=== PATIENT | female | born 1955 | race Caucasian/White ===

== ENCOUNTER → 2017-04-14 | Outpatient (CLI) | payer OTHER | LOC: FIMAGING 15:36 | PROVIDERS: ATTEND Family Medicine | DX: M79.605 Pain in left leg (principal); R22.42 Localized swelling, mass and lump, left lower limb ==

== ENCOUNTER → 2017-04-17 | Outpatient (CLI) | payer OTHER | LOC: FIMAGING 18:37 | PROVIDERS: ATTEND Family Medicine | DX: M79.662 Pain in left lower leg (principal) ==

== ENCOUNTER 2017-06-02 21:22 | Emergency (ER) | payer OTHER ==
[2017-06-02 21:32] VITALS: TEMP 97.3
[2017-06-02 22:25] LABS: % IMMATURE GRANULYOCYTES 0.3 % (0.0-1.1); ABSOLUTE IMMATURE GRANULOCYTES 0.03 10^3/uL (0.00-0.10); ADD DIFF? NO; ADD MORPH? NO; ADD SCAN? NO; ATYPICAL LYMPHOCYTE FLAG 0 (0-99); FRAGMENT RBC FLAG 0 (0-99); HEMATOCRIT 43.6 % (38.0-47.0); HEMOGLOBIN 13.9 g/dL (12.6-16.3); LEFT SHIFT FLG 0 (0-99); LIPEMIA HEMOLYSIS FLAG 80 (0-99); MEAN CELL HEMOGLOBIN 27.1 pg (27.9-34.1); MEAN CELL HEMOGLOBIN CONCENTR. 31.9 g/dL (32.4-36.7); MEAN PLATELET VOLUME 9.8 fL (8.7-11.7); PLATELET CLUMPS FLAG 0 (0-99); PLATELET COUNT 190 10^3/uL (150-400); RED BLOOD CELL COUNT 5.13 10^6/uL (4.18-5.33); RED CELL DISTRIBUTION WIDTH 15.3 % (11.5-15.2)
[2017-06-02 22:39] LABS: ANION GAP 15 mEq/L (8-16); CALCIUM 8.8 mg/dL (8.5-10.4); CARBON DIOXIDE 26 mEq/l (22-31); CHLORIDE 101 mEq/L (97-110); CREATININE 0.8 mg/dL (0.6-1.0); GLOMERULAR FILTRATION RATE > 60; GLUCOSE 113 mg/dL (70-100); POTASSIUM 3.7 mEq/L (3.5-5.2); SODIUM 142 mEq/L (134-144)
--- NOTE | 2017-06-02 22:44 | EDPHY ---
H & P Time Seen by Provider: 06/02/17 21:35 HPI/ROS: This patient presents with "a large red spot "on her abdominal wall. She noticed some itching this morning and over the course of the day developed increasing redness to the area and she notices that the area of redness is warm to touch. She is concerned about and potential infection and came in for evaluation. She has never had this occur to her before on the belly or elsewhere. She otherwise feels well and describes only minimal discomfort associated with the area of redness. She arrives here by private vehicle. ROS: No fevers or chills. No other constitutional symptoms Cardiovascular: No lightheadedness. GI: No nausea or vomiting no abdominal pain. No abdominal distension. Normal bowel movements. Integumentary: No rash elsewhere. She is unaware of any recent lacerations or abrasions to the area of redness. 7 point ROS is otherwise negative Past Medical/Surgical History: Insomnia, cardiomyopathy, asthma Smoking Status: Former smoker Physical Exam: Initial vitals notable for hypertension. No fever. General Appearance: Pleasant obese female Alert, no distress. Eyes: Pupils equal and round no pallor or injection. ENT, Mouth: Mucous membranes moist. Respiratory: There are no retractions, lungs are clear to auscultation. Cardiovascular: Regular rate and rhythm. Gastrointestinal: Normoactive, soft, nontender. No distention. No medical hernias appreciated. Neurological: GCS 15 Skin: There is a small superficial crack in the skin at the border of the umbilicus this partial-thickness, nonbleeding there is no fluctuance associated with this. There is surrounding erythema and warmth to touch inferior to the umbilicus in area approximately 2 hands in size. Musculoskeletal: Neck is supple nontender. Psychiatric: Mood and affect are normal DIFFERENTIAL DIAGNOSIS: After history and physical exam differential diagnosis was considered for abdominal wall cellulitis-strep versus staph, doubt MR . No clinical evidence of abscess Constitutional: Initial Vital Signs Temperature (C) 36.3 C 06/02/17 21:31 Heart Rate 99 06/02/17 21:31 Respiratory Rate 20 06/02/17 21:31 Blood Pressure 196/101 H 06/02/17 21:31 O2 Sat (%) 91 L 06/02/17 21:31 O2 Delivery Mode Room Air Allergies/Adverse Reactions: No Known Allergies Allergy (Verified 06/02/17 21:29) Home Medications: Medication Instructions Recorded Haloperidol 2 mg PO HS 01/03/15 Loratadine [Claritin 10 mg] 10 mg PO BID 01/03/15 lamOTRIGine [Lamotrigine] 200 mg PO HS 01/03/15 Diuretic 06/02/17 MDM/Departure - MDM Diagnostics: CBC and basic metabolic panel are normal. Wound cultures pending Medications Given: Discontinued Medications Ceftriaxone Sodium 1 gm/ (Sodium Chloride) 100 mls @ 200 mls/hr IV EDNOW ONE PRN Reason: Protocol Stop: 06/02/17 22:36 Last Admin: 06/02/17 22:27 Dose: 100 mls ED Course/Re-evaluation: I obtained a swab culture from a moist Q-tip applied to the area of cracked skin at the umbilicus. IV is placed and patient is treated with 1 g of Rocephin. I counseled her regarding cellulitis. Discussion: Abdominal wall cellulitis likely with a source from the area of cracked skin near the umbilicus. Patient has no clinical evidence of sepsis or systemic toxicity associated with this, nor did she have any evidence of surgical abdomen, incarcerated hernia, abscess or other concerning findings. However given the size and location cellulitis felt the patient warranted IV antibiotics. She will return tomorrow for recheck. - Depart Disposition: Home, Routine, Self-Care Clinical Impression: Abdominal wall cellulitis Condition: Good Instructions: Cellulitis (ED) Additional Instructions: Diagnosis: Abdominal wall cellulitis Plan: Apply warm packs a few times a day tomorrow. Tylenol and/or ibuprofen if needed for discomfort Return after 3:00 p.m. for recheck here at [facility] Emergency Department. Return sooner if he develops any significant worsening-onset of fever chills or significant spreading of the redness Referrals: Alonso Freedman MD [Primary Care Provider] - As per Instructions
[2017-06-02 23:27] VITALS: BP 166/89; PULSE 92; RESP 16; O2SAT 96
--- NOTE | 2017-06-03 22:35 | EDPHY ---
H & P Stated Complaint: red area on belly, started today, concerned re infection Time Seen by Provider: 06/02/17 21:35 HPI/ROS: This document was inadvertently opened initiated for discharge. There is a separate document for the same visit for this day. Please refer to that documentation for the patient's visit. Source: Patient Exam Limitations: No limitations - Personal History Current Tetanus/Diphtheria Vaccine: Yes Current Tetanus Diphtheria and Acellular Pertussis (TDAP): Yes Tetanus Vaccine Date: < 10 YEARS - Medical/Surgical History Hx Asthma: Yes Hx Chronic Respiratory Disease: Yes Hx Diabetes: No Hx Cardiac Disease: No Hx Renal Disease: No Hx Cirrhosis: No Hx Alcoholism: No Hx HIV/AIDS: No Hx Splenectomy or Spleen Trauma: No Other PMH: CARDIOMYOPATHY, ASTHMA, - Social History Smoking Status: Former smoker Constitutional: Initial Vital Signs Temperature (C) 36.3 C 06/02/17 21:31 Heart Rate 99 06/02/17 21:31 Respiratory Rate 20 06/02/17 21:31 Blood Pressure 196/101 H 06/02/17 21:31 O2 Sat (%) 91 L 06/02/17 21:31 O2 Delivery Mode Room Air Allergies/Adverse Reactions: No Known Allergies Allergy (Verified 06/04/17 13:55) Home Medications: Medication Instructions Recorded Haloperidol 2 mg PO HS 01/03/15 Fluticasone Nasal [Flonase Nasal 1 sprays NASAL DAILY PRN 06/05/17 [place]] Loratadine/Pseudoephedrine 1 tab PO DAILY PRN 06/05/17 [Loratadine-D 24Hr Tablet] Naproxen Sodium [Aleve 220 MG (*)] 220 mg PO DAILY PRN 06/05/17 Sulfamethox/Tmp 800/160 mg 1 tab PO BID 06/05/17 [Bactrim DS] acetaZOLAMIDE [Diamox Sequel 500mg] 500 mg PO Q2D 06/05/17 lamOTRIGine [Lamotrigine] 200 mg PO HS 06/05/17 Hydrocodone/APAP 5/325 [[place] 1 - 2 tab PO Q4 PRN #20 tab 06/06/17 5/325 (*)] Medical Decision Making - Data Points Laboratory Results: Laboratory Results 06/02/17 22:20 06/02/17 22:20 Medications Given: Discontinued Medications Ceftriaxone Sodium 1 gm/ (Sodium Chloride) 100 mls @ 200 mls/hr IV EDNOW ONE PRN Reason: Protocol Stop: 06/02/17 22:36 Last Admin: 06/02/17 22:27 Dose: 100 mls Departure - Departure Disposition: Home, Routine, Self-Care Clinical Impression: Abdominal wall cellulitis Condition: Good Instructions: Cellulitis (ED) Additional Instructions: Diagnosis: Abdominal wall cellulitis Plan: Apply warm packs a few times a day tomorrow. Tylenol and/or ibuprofen if needed for discomfort Return after 3:00 p.m. for recheck here at [facility] Emergency Department. Return sooner if he develops any significant worsening-onset of fever chills or significant spreading of the redness Referrals: Alonso Freedman MD [Primary Care Provider] - As per Instructions
== END 2017-06-02 23:25 | disposition home or self-care (01) ==
LOC: CED 21:22
DX: L03.311 Cellulitis of abdominal wall (principal); J45.909 Unspecified asthma, uncomplicated; Z87.891 Personal history of nicotine dependence
CPT/HCPCS: 80048-PO; 85025-PO; 96365; J0696

== ENCOUNTER 2017-06-03 16:15 | Emergency (ER) | payer OTHER ==
[2017-06-03 16:28] VITALS: RESP 16; TEMP 98.2; O2SAT 91
[2017-06-03 17:58] LABS: % IMMATURE GRANULYOCYTES 0.3 % (0.0-1.1); ABSOLUTE IMMATURE GRANULOCYTES 0.02 10^3/uL (0.00-0.10); ADD DIFF? NO; ADD MORPH? NO; ADD SCAN? NO; ATYPICAL LYMPHOCYTE FLAG 0 (0-99); FRAGMENT RBC FLAG 0 (0-99); HEMATOCRIT 45.1 % (38.0-47.0); HEMOGLOBIN 14.5 g/dL (12.6-16.3); LEFT SHIFT FLG 0 (0-99); LIPEMIA HEMOLYSIS FLAG 80 (0-99); MEAN CELL HEMOGLOBIN 27.3 pg (27.9-34.1); MEAN CELL HEMOGLOBIN CONCENTR. 32.2 g/dL (32.4-36.7); MEAN CELL VOLUME 84.9 fL (81.5-99.8); MEAN PLATELET VOLUME 9.8 fL (8.7-11.7); PLATELET CLUMPS FLAG 20 (0-99); PLATELET COUNT 190 10^3/uL (150-400); RED BLOOD CELL COUNT 5.31 10^6/uL (4.18-5.33); RED CELL DISTRIBUTION WIDTH 15.5 % (11.5-15.2)
[2017-06-03 18:09] LABS: ANION GAP 15 mEq/L (8-16); CALCIUM 8.8 mg/dL (8.5-10.4); CARBON DIOXIDE 26 mEq/l (22-31); CHLORIDE 105 mEq/L (97-110); CREATININE 0.7 mg/dL (0.6-1.0); GLOMERULAR FILTRATION RATE > 60; GLUCOSE 87 mg/dL (70-100); POTASSIUM 4.1 mEq/L (3.5-5.2); SODIUM 146 mEq/L (134-144)
--- NOTE | 2017-06-03 18:11 | EDPHY ---
H & P Stated Complaint: pt.states eval yesterday,cellulitis abd and treated w/ iv antibiotics Time Seen by Provider: 06/03/17 16:41 HPI/ROS: This patient returns 24 hr after I saw her yesterday for abdominal wall cellulitis reporting that she has more tenderness today at the umbilicus with slight deepening of the color of erythema but no significant spread to the area of erythema. She denies any other new symptoms. She came in by private vehicle for further evaluation according to instructions. ROS: No fevers or chills overnight. HEENT: No complaints line pulmonary: No complaints Cardiovascular: No lightheadedness or heart palpitations GI: No nausea vomiting. Mild discomfort it periumbilical in umbilical region with tenderness the umbilicus that is increased since yesterday. Normal bowel movements. : No complaints Integumentary: No other skin rashes 10 point ROS is otherwise negative. Source: Patient Exam Limitations: No limitations - Personal History Tetanus Vaccine Date: < 10 YEARS - Medical/Surgical History Hx Asthma: Yes Hx Chronic Respiratory Disease: Yes Hx Diabetes: No Hx Cardiac Disease: No Hx Renal Disease: No Hx Cirrhosis: No Hx Alcoholism: No Hx HIV/AIDS: No Hx Splenectomy or Spleen Trauma: No Other PMH: CARDIOMYOPATHY, ASTHMA,. Surg-none - Social History Smoking Status: Former smoker Alcohol Use: Rarely Drug Use: None - Physical Exam Exam: General Appearance: Pleasant obese 62-year-old female Alert, no distress. Eyes: Pupils equal and round no pallor or injection. ENT, Mouth: Mucous membranes moist. Respiratory: There are no retractions, lungs are clear to auscultation. Cardiovascular: Regular rate and rhythm. Gastrointestinal: Normoactive, soft, patient has a prominent umbilicus versus reducible umbilical hernia with associated erythema tenderness and warmth to touch. There is surrounding erythema approximately size yesterday's-minimally extends beyond surgical marker from yesterday's area of erythema in some places and does not extend beyond the marked region and other places. There is slight increase in the degree of erythema today. She has continued warmth to the area. Neurological: GCS 15 Skin: Warm and dry, no rashes. Musculoskeletal: Neck is supple nontender. Extremities are symmetrical, full range of motion. Psychiatric: Mood and affect normal DIFFERENTIAL DIAGNOSIS: After history and physical exam differential diagnosis was considered for abdominal wall cellulitis, umbilical hernia, rule out incarcerated hernia or abdominal wall abscess Constitutional: Initial Vital Signs Temperature (C) 36.8 C 06/03/17 16:24 Heart Rate 93 06/03/17 16:24 Respiratory Rate 16 06/03/17 16:24 Blood Pressure 169/115 H 06/03/17 16:24 O2 Sat (%) 91 L 06/03/17 16:24 O2 Delivery Mode Room Air Allergies/Adverse Reactions: No Known Allergies Allergy (Verified 06/03/17 16:23) Home Medications: Medication Instructions Recorded Haloperidol 2 mg PO HS 01/03/15 Loratadine [Claritin 10 mg] 10 mg PO BID 01/03/15 lamOTRIGine [Lamotrigine] 200 mg PO HS 01/03/15 Diuretic 06/02/17 Sulfamethox/Tmp 800/160 mg 1 tab PO BID #20 tab 06/03/17 [Bactrim Ds] Medical Decision Making - Diagnostics Imaging Results: Imaging Impressions Abdomen CT 06/03/17 17:10 Impression: 1. Umbilical hernia containing fat. There is associated inflammation adjacent to the hernia involving the periumbilical region. 2. See above report for additional findings. Results called and discussed with Abel Hawk M.D. on June 03, 2017 at 1930 hours. Imaging: Discussed imaging studies w/ processes chemical design engineer Radiologist ED Course/Re-evaluation: IV ceftriaxone 1 g I counseled patient regarding the need to pursue some imaging for further evaluation of the umbilicus/umbilical hernia Studies: Normal CBC today with white count diminished from above 9 yesterday to 6.9 today. Electrolytes normal I reviewed the patient's abdominal/pelvic CT and also spoke with Dr. Alegria- radiologist regarding results-large umbilical hernia with fat in the hernia but no bowel in the hernia no evidence of incarceration or obstruction. I spoke with Dr. Gambino-general surgeon on-call regarding the patient's umbilical hernia findings. He reviewed the CT as well and we decided on a course of treating the patient's abdominal wall cellulitis with antibiotics until infection clears and then proceeding with elective umbilical hernia repair. Currently, no evidence of incarcerated hernia, sepsis. The patient's degree of pain increased slightly to still mild intensity today which is what prompted my pursuing of imaging to further evaluate her umbilical hernia. We ruled out incarceration, bowel obstruction or abdominal wall abscess. The plan is to have 1 more day of IV ceftriaxone provided she is still stable, she will be recheck tomorrow and if improving could be switched to a regimen of oral Keflex or Augmentin along with sulfa-Bactrim antibiotic that I added on today. Wound cultures pending from the crack in the skin near the umbilicus from yesterday - results may be back tomorrow. This could further guide antibiotic therapy. The patient does not have immunocompromise. I did encourage her to use a heating pad her abdomen 45 min a day 4 times a day as per Dr. Gambino suggestion to encourage perfusion to the affected area of her belly. Patient was instructed to call Dr. Jaz Holloway-the office the Dr. Gambino is affiliated with to arrange follow-up appointment for 10-12 days or so as she is finishing the antibiotic course for recheck and for elective surgical planning for her significant umbilical hernia - Data Points Laboratory Results: Laboratory Results 06/03/17 17:45 06/03/17 17:45 06/03/17 06/03/17 17:45 17:45 WBC 6.94 10^3/uL 10^3/uL (3.80-9.50) RBC 5.31 10^6/uL 10^6/uL (4.18-5.33) Hgb 14.5 g/dL g/dL (12.6-16.3) Hct 45.1 % % (38.0-47.0) MCV 84.9 fL fL (81.5-99.8) MCH 27.3 pg L pg (27.9-34.1) MCHC 32.2 g/dL L g/dL (32.4-36.7) RDW 15.5 % H % (11.5-15.2) Plt Count 190 10^3/uL 10^3/uL (150-400) MPV 9.8 fL fL (8.7-11.7) Neut % (Auto) 71.7 % % (39.3-74.2) Lymph % (Auto) 18.9 % % (15.0-45.0) [place] % (Auto) 6.8 % % (4.5-13.0) Eos % (Auto) 1.9 % % (0.6-7.6) Baso % (Auto) 0.4 % % (0.3-1.7) Nucleat RBC Rel Count 0.0 % % (0.0-0.2) Absolute Neuts (auto) 4.98 10^3/uL 10^3/uL (1.70-6.50) Absolute Lymphs (auto) 1.31 10^3/uL 10^3/uL (1.00-3.00) Absolute Monos (auto) 0.47 10^3/uL 10^3/uL (0.30-0.80) Absolute Eos (auto) 0.13 10^3/uL 10^3/uL (0.03-0.40) Absolute Basos (auto) 0.03 10^3/uL 10^3/uL (0.02-0.10) Absolute Nucleated RBC 0.00 10^3/uL 10^3/uL (0-0.01) Immature Gran % 0.3 % % (0.0-1.1) Immature Gran # 0.02 10^3/uL 10^3/uL (0.00-0.10) Sodium 146 mEq/L H mEq/L (134-144) Potassium 4.1 mEq/L mEq/L (3.5-5.2) Chloride 105 mEq/L mEq/L (97-110) Carbon Dioxide 26 mEq/l mEq/l (22-31) Anion Gap 15 mEq/L mEq/L (8-16) BUN 15 mg/dL mg/dL (7-23) Creatinine 0.7 mg/dL mg/dL (0.6-1.0) Estimated GFR > 60 Glucose 87 mg/dL mg/dL (70-100) Calcium 8.8 mg/dL mg/dL (8.5-10.4) Medications Given: Discontinued Medications Ceftriaxone Sodium 1 gm/ (Sodium Chloride) 100 mls @ 200 mls/hr IV EDNOW ONE PRN Reason: Protocol Stop: 06/03/17 17:22 Last Admin: 06/03/17 17:50 Dose: 10 mls Trimethoprim/Sulfamethoxazole (Bactrim Ds) 1 ea PO EDNOW ONE PRN Reason: Protocol Stop: 06/03/17 20:00 Last Admin: 06/03/17 20:13 Dose: 1 ea Departure - Departure Disposition: Home, Routine, Self-Care Clinical Impression: Abdominal wall cellulitis Umbilical hernia Qualifiers: Obstruction and gangrene presence: without obstruction or gangrene Qualified Code(s): K42.9 - Umbilical hernia without obstruction or gangrene Condition: Good Instructions: Cellulitis (ED), Umbilical Hernia (ED) Additional Instructions: Diagnoses: 1. Abdominal wall cellulitis 2. Umbilical hernia Plan: Apply heating pad 45 min at a time 4 times a day until the cellulitis resolved Bactrim antibiotic Return tomorrow evening for another dose of IV antibiotics. Tylenol or ibuprofen if needed for pain Return sooner if he develops any worsening of symptoms despite treatment plan Call Dr. Holloway office to arrange a follow-up outpatient visit in 10-12 days after completing antibiotics Referrals: Alonso Freedman MD [Primary Care Provider] - As per Instructions Cullen Holloway MD [Medical Doctor] - As per Instructions Prescriptions: Sulfamethox/Tmp 800/160 mg [Bactrim Ds] 1 tab PO BID #20 tab
[2017-06-03] MEDS ORDERED: IOPAMIDOL (ISOVUE-300) 100 ML BTL ONE (18:14)
[2017-06-03] MEDS ORDERED: SULFAMETHOX/TMP 800/160 MG 1 TAB PO ONE (19:59)
[2017-06-03 20:13] VITALS: BP 170/106; PULSE 86
== END 2017-06-03 20:09 | disposition home or self-care (01) ==
LOC: CED 16:15
DX: K42.9 Umbilical hernia without obstruction or gangrene (principal); L03.311 Cellulitis of abdominal wall; J45.909 Unspecified asthma, uncomplicated; Z87.891 Personal history of nicotine dependence
CPT/HCPCS: 74177-PO; 80048-PO; 85025-PO; 96374; J0696; Q9967

== ENCOUNTER 2017-06-04 13:46 | Emergency (ER) | payer OTHER ==
[2017-06-04 13:57] VITALS: BP 175/95; PULSE 91; RESP 18; TEMP 97.5; O2SAT 91
--- NOTE | 2017-06-04 14:09 | EDPHY ---
H & P Stated Complaint: repeat abx for abd skin infection Time Seen by Provider: 06/04/17 14:00 - Personal History Tetanus Vaccine Date: < 10 YEARS - Medical/Surgical History Hx Asthma: Yes Hx Chronic Respiratory Disease: Yes Hx Diabetes: No Hx Cardiac Disease: No Hx Renal Disease: No Hx Cirrhosis: No Hx Alcoholism: No Hx HIV/AIDS: No Hx Splenectomy or Spleen Trauma: No Other PMH: CARDIOMYOPATHY, ASTHMA,. Surg-none - Social History Smoking Status: Former smoker Constitutional: Initial Vital Signs Temperature (C) 36.4 C 06/04/17 13:55 Heart Rate 91 06/04/17 13:55 Respiratory Rate 18 06/04/17 13:55 Blood Pressure 175/95 H 06/04/17 13:55 O2 Sat (%) 91 L 06/04/17 13:55 O2 Delivery Mode Room Air Allergies/Adverse Reactions: No Known Allergies Allergy (Verified 06/04/17 13:55) Home Medications: Medication Instructions Recorded Haloperidol 2 mg PO HS 01/03/15 Loratadine [Claritin 10 mg] 10 mg PO BID 01/03/15 lamOTRIGine [Lamotrigine] 200 mg PO HS 01/03/15 Diuretic 06/02/17 Sulfamethox/Tmp 800/160 mg 1 tab PO BID #20 tab 06/03/17 [Bactrim Ds] Cephalexin [Keflex (RX)] 500 mg PO TID #30 cap 06/04/17 Medical Decision Making ED Course/Re-evaluation: CHIEF COMPLAINT: Abdominal cellulitis HISTORY OF PRESENT ILLNESS: 62-year-old female whose had recurrent visits for abdominal cellulitis. She has received 3 doses of IV ceftriaxone. She was started on Bactrim yesterday also. Patient states that the abdomen feels much better today and is less bright red. She also states that it is less painful. She also denies any fevers or chills nausea vomiting or any systemic illness. REVIEW OF SYSTEMS: A 10 point review of systems was performed and is negative with the exception of the elements mentioned in the history of present illness. PHYSICAL EXAM: HR, BP, O2 Sat, RR. Temp noted General Appearance: Alert, well hydrated, appropriate, and non-toxic appearing. Head: Atraumatic without scalp tenderness or obvious injury Eyes: Pupils equal, round, reactive to light and accommodation, EOMI, no trauma , no injection. Ears: Clear bilaterally, no perforation, normal landmarks Nose: Atraumatic, no rhinorrhea, clear. Throat: There is no erythema or exudates, no lesions, normal tonsils, mucus membranes moist. Neck: Supple, 2+ carotid upstroke, nontender, no lymphadenopathy. Respiratory: No retractions, no distress, no wheezes, and no accessory muscle use. Lungs are clear to auscultation bilaterally. Cardiovascular: Regular rate and rhythm, no murmurs, rubs, or gallops. Bilateral carotid, radial, dorsalis pedis, and posterior tibial pulses intact. Good capillary refill all extremities. Gastrointestinal: Reducible umbilical hernia. Abdomen is soft, nontender, non- distended, no masses, no rebound, no guarding, no peritoneal signs. Musculoskeletal: Normal active ROM of all extremities, atraumatic. Neurological: Alert, appropriate, and interactive. The patient has normal DTRs and non-focal cranial nerves, motor, sensory, and cerebellar exam. Skin: An erythematous patch just below the umbilicus outlined by a marker. The erythema is much more dark red according to the patient and does not look very acutely reactive to me. Also there is no encroachment upon the surgical marker lines. Generally this is looking better. No rashes, good turgor, no nodules on palpation. Past medical history: Noncontributory Past surgical history: Noncontributory Family history: Noncontributory Social history: Employed at [employer], does not abuse tobacco drugs or alcohol DIAGNOSTICS/PROCEDURES/CRITICAL CARE TIME: I reviewed the CT scan done on the . DIFFERENTIAL DIAGNOSIS: Includes but is not limited to: Bacterial cellulitis , contact dermatitis, methicillin-resistant Staph aureus, methicillin sensitive Staph aureus, strep. MEDICAL DECISION MAKING: This patient's rash is much better today according to the patient and according to my evaluation in light of my reviewing Abel Hawk is prior notes. The 1 issue is that she started to developed a small amount of diarrhea. She believes she started to get better when Dr. Hawk started her on Bactrim. I have asked her to continue the Bactrim and I have added Keflex. She will follow up with her primary care doctor for re- evaluation. She will also follow-up with Dr. Delvin Holloway for elective surgery of the umbilical hernia although I do not believe it is incarcerated. Additionally, if the diarrhea persists she will return here medially or see her primary doctor. I have also asked her to begin probiotics. Departure - Departure Disposition: Home, Routine, Self-Care Clinical Impression: Cellulitis of abdominal wall Condition: Good Instructions: Cellulitis (ED) Additional Instructions: Use probiotics 4 times daily over the next several days. Finish both the Keflex and the Bactrim that Dr. Hawk prescribed. Follow up with Dr. DELVIN Holloway. If the diarrhea worsens seizure primary care doctor immediately. Referrals: Alonso Freedman MD [Primary Care Provider] - As per Instructions Prescriptions: Cephalexin [Keflex (RX)] 500 mg PO TID #30 cap
== END 2017-06-04 14:21 | disposition home or self-care (01) ==
LOC: CED 13:46
DX: L03.311 Cellulitis of abdominal wall (principal); J45.909 Unspecified asthma, uncomplicated; Z87.891 Personal history of nicotine dependence

== ENCOUNTER 2017-06-05 17:22 | Observation (INO) | payer OTHER ==
--- NOTE | 2017-06-05 17:24 | EDPHY ---
H & P Time Seen by Provider: 06/05/17 17:23 - Personal History Tetanus Vaccine Date: < 10 YEARS - Medical/Surgical History Hx Asthma: Yes Hx Chronic Respiratory Disease: Yes Hx Diabetes: No Hx Cardiac Disease: No Hx Renal Disease: No Hx Cirrhosis: No Hx Alcoholism: No Hx HIV/AIDS: No Hx Splenectomy or Spleen Trauma: No Other PMH: CARDIOMYOPATHY, ASTHMA,. Surg-none - Social History Smoking Status: Former smoker Constitutional: Initial Vital Signs Temperature (C) 36.7 C 06/05/17 17:31 Heart Rate 96 06/05/17 17:31 Respiratory Rate 16 06/05/17 17:31 Blood Pressure 231/99 H 06/05/17 17:31 O2 Sat (%) 94 06/05/17 17:31 Allergies/Adverse Reactions: No Known Allergies Allergy (Verified 06/04/17 13:55) Home Medications: Medication Instructions Recorded Haloperidol 2 mg PO HS 01/03/15 Cephalexin [Keflex (RX)] 500 mg PO TID #30 cap 06/04/17 ACETAZOLAMIDE 06/05/17 Fluticasone Nasal [Flonase Nasal 1 sprays NASAL DAILY PRN 06/05/17 [place] (RX)] Loratadine/Pseudoephedrine 1 tab PO DAILY PRN 06/05/17 [Loratadine-D Tablet] Naproxen Sodium [Aleve 220 MG (*)] 220 mg PO DAILY PRN 06/05/17 Sulfamethox/Tmp 800/160 mg 1 tab PO BID 06/05/17 [Bactrim Ds] lamOTRIGine [Lamotrigine] 200 mg PO HS 06/05/17 Medical Decision Making ED Course/Re-evaluation: CHIEF COMPLAINT: Abdominal cellulitis HISTORY OF PRESENT ILLNESS: 62-year-old female whose had recurrent visits for abdominal cellulitis. She has received 3 doses of IV ceftriaxone. She was started on Bactrim also. I evaluated her yesterday at [facility] for a scheduled recheck of her abdominal rash. She reported improvement in the associated pain and redness overlying an umbilical hernia. I advised that she continue the Bactrim and start Keflex, which she has done. Today, she has developed worsening pain around her umbilical hernia and thinks her rash is spreading. She denies any fevers or chills nausea vomiting or any systemic illness. REVIEW OF SYSTEMS: A 10 point review of systems was performed and is negative with the exception of the elements mentioned in the history of present illness. PHYSICAL EXAM: HR, BP, O2 Sat, RR. Temp noted General Appearance: Alert, well hydrated, appropriate, and non-toxic appearing. Head: Atraumatic without scalp tenderness or obvious injury Eyes: Pupils equal, round, reactive to light and accommodation, EOMI, no trauma , no injection. Nose: Atraumatic, no rhinorrhea, clear. Throat: Mucus membranes moist. Neck: Supple Respiratory: No retractions, no distress, no wheezes, and no accessory muscle use. Lungs are clear to auscultation bilaterally. Cardiovascular: Regular rate and rhythm, no murmurs, rubs, or gallops. Good capillary refill all extremities. Gastrointestinal: Reducible umbilical hernia. Abdomen is soft, nontender, non- distended, no masses, no rebound, no guarding, no peritoneal signs. Musculoskeletal: Normal active ROM of all extremities, atraumatic. Neurological: Alert, appropriate, and interactive. The patient has non-focal cranial nerves, motor, sensory, and cerebellar exam. Skin: An erythematous patch just below the umbilicus has encroached and expanded past the marker outline. The area is darker red than yesterday and more tender to the touch. Good turgor, no nodules on palpation. Past medical history: Cardiomyopathy, asthma Past surgical history: Noncontributory Family history: Noncontributory Social history: Employed at [employer], does not abuse tobacco drugs or alcohol DIAGNOSTICS/PROCEDURES/CRITICAL CARE TIME: I reviewed the CT scan done on the . DIFFERENTIAL DIAGNOSIS: Includes but is not limited to: Bacterial cellulitis , incarcerated omental hernia, contact dermatitis, methicillin-resistant Staph aureus, methicillin sensitive Staph aureus, strep. MEDICAL DECISION MAKING: This patient's rash is worse today according to the patient and according to my evaluation. She continued the Bactrim and Keflex I prescribed yesterday and has not seen improvement. In discussion with Dr. Fazal Holloway, he believes her cellulitis will not improve until her omental umbilical hernia has been treated surgically. He has offered to admit her tonight for this, which the patient agrees to. IV established. Labs drawn. 1gm IV Vancomycin administered for cellulitis. Departure - Departure Disposition: [facility] Clinical Impression: Incarcerated hernia, omental umbilical hernia, Abdominal wall cellulitis Condition: Fair
[2017-06-05 17:48] LABS: % IMMATURE GRANULYOCYTES 0.4 % (0.0-1.1); ABSOLUTE IMMATURE GRANULOCYTES 0.04 10^3/uL (0.00-0.10); ADD DIFF? NO; ADD MORPH? NO; ADD SCAN? NO; ATYPICAL LYMPHOCYTE FLAG 0 (0-99); FRAGMENT RBC FLAG 0 (0-99); HEMATOCRIT 46.5 % (38.0-47.0); HEMOGLOBIN 15.4 g/dL (12.6-16.3); LEFT SHIFT FLG 0 (0-99); LIPEMIA HEMOLYSIS FLAG 80 (0-99); MEAN CELL HEMOGLOBIN 27.9 pg (27.9-34.1); MEAN CELL HEMOGLOBIN CONCENTR. 33.1 g/dL (32.4-36.7); MEAN CELL VOLUME 84.2 fL (81.5-99.8); MEAN PLATELET VOLUME 9.6 fL (8.7-11.7); PLATELET CLUMPS FLAG 10 (0-99); PLATELET COUNT 219 10^3/uL (150-400); RED BLOOD CELL COUNT 5.52 10^6/uL (4.18-5.33); RED CELL DISTRIBUTION WIDTH 15.3 % (11.5-15.2)
[2017-06-05 18:01] LABS: PROTIME(PATIENT) 13.4 SEC (12.0-15.0)
[2017-06-05 18:05] LABS: ALANINE AMINOTRANSFERASE 46 IU/L (9-52); ALBUMIN 4.2 g/dL (3.5-5.0); ALKALINE PHOSPHATASE 154 IU/L (38-126); ANION GAP 14 mEq/L (8-16); ASPARTATE AMINOTRANSFERASE 27 IU/L (14-46); BILIRUBIN,TOTAL 0.4 mg/dL (0.1-1.4); BILIRUBIN-CONJUGATED 0.3 mg/dL (0.0-0.5); BILIRUBIN-UNCONJUGATED 0.1 mg/dL (0.0-1.1); CALCIUM 9.4 mg/dL (8.5-10.4); CARBON DIOXIDE 22 mEq/l (22-31); CHLORIDE 108 mEq/L (97-110); GLOMERULAR FILTRATION RATE 56; GLUCOSE 92 mg/dL (70-100); SODIUM 144 mEq/L (134-144); TOTAL PROTEIN 7.1 g/dL (6.3-8.2)
[2017-06-05] MEDS ORDERED: VANCOMYCIN HCL/NORMAL SALINE 250 ML IV ONE (18:14)
[2017-06-05] MEDS ORDERED: ONDANSETRON 4 MG/2 ML VIAL IVP PRN ×2 (18:58→23:08)
[2017-06-05] MEDS ORDERED: HYDROmorphONE/DILAUDID 1 MG/ML INJ IVP PRN (18:58)
[2017-06-05] MEDS ORDERED: OXYCODONE/APAP 5/325 TAB PO PRN (18:58)
[2017-06-05] MEDS ORDERED: NS W/ 20 KCl/L 1,000 ML IV SCH (19:00)
--- NOTE | 2017-06-05 19:38 | GHP ---
[f rep st] HISTORY AND PHYSICAL DATE OF ADMISSION: 06/05/2017 CHIEF COMPLAINT: Incarcerated umbilical hernia. HISTORY OF PRESENT ILLNESS: The patient is a 62-year-old female who denies a surgical history, who w as seen in urgent care for abdominal rash. This was thought to be erythema associated with an incarc erated umbilical hernia. She was put on antibiotics and thought initially the redness was improving. However, she since has developed worsening pain and thinks the rash is spreading in a gravity depen dent manner. She denies nausea, vomiting, diarrhea, constipation, fevers, or chills. PAST MEDICAL HISTORY: The patient reports having "small lungs" and says she was told she is a "lazy breather." She denies any major medical issues; however, from chart review, she has been diagnosed w ith cardiomyopathy. PAST SURGICAL HISTORY: Denies. MEDICATIONS: Include Flonase nasal spray, loratadine D, Aleve, Bactrim, lamotrigine, acetazolamide, haloperidol. ALLERGIES: No known drug allergies. SOCIAL HISTORY: Patient is a nonsmoker. She is employed at [employer] in [place]. FAMILY HISTORY: Noncontributory. REVIEW OF SYSTEMS: Ten-point review of systems negative, aside from that in the HPI. PHYSICAL EXAMINATION: GENERAL: Reveals a well-developed, well-nourished 62-year-old female with an increased BMI, in no acute distress. Nontoxic appearing. HEENT: Normocephalic, atraumatic. CHEST: Clear to auscultation bilaterally. CARDIAC: Regular rate and rhythm. ABDOMEN: Soft, with a tend er umbilical hernia, with irregular erythema below this, now extending beyond marked margins. IMPRESSIONS: This is a 62-year-old female with an incarcerated umbilical hernia and abdominal wall c ellulitis. PLAN: Plan is to bring the patient to the operating room for urgent umbilical hernia repair. I do n ot think she has bowel associated with this. She did have a CT scan a few days ago, which was review ed. She has also been given vancomycin in the ER. There is a consent in her chart, and she should r emain n.p.o. until surgery tonight. She will also be seeing Dr. Holloway. /[id number]/MODL
[2017-06-05] MEDS ORDERED: BUPIVACAINE 0.5% 30 ML SDV ONE (20:20)
[2017-06-05] MEDS ORDERED: MIDAZOLAM 2 MG/2 ML VIAL IVP ONE (21:02)
[2017-06-05] MEDS ORDERED: MIDAZOLAM 2 MG/2 ML VIAL ONE (21:04)
--- NOTE | 2017-06-05 21:06 | PDANEPAE ---
ANE History of Present Illness Incarcerated umbilical hernia ANE Past Medical History - Cardiovascular History Hx Hypertension: No Hx Arrhythmias: No Hx Chest Pain: No Hx Coronary Artery / Peripheral Vascular Disease: No Hx CHF / Valvular Disease: No Hx Palpitations: No - Pulmonary History Hx Oxygen in Use at Home: No Hx Sleep Apnea: No Sleep Apnea Screening Result - Last Documented: Positive - Endocrine History Hx Diabetes: No Hypothyroid: No Hyperthyroid: No Obesity: severe - Chronic Pain History Chronic Pain: No ANE Review of Systems Review of Systems: - Exercise capacity METS (RN): 4 METS ANE Patient History - Allergies Allergies/Adverse Reactions: No Known Allergies Allergy (Verified 06/04/17 13:55) - Home Medications Home Medications: Haloperidol 2 mg PO HS 01/03/15 [Last Taken 06/04/17 21:00] Fluticasone Nasal [Flonase Nasal [place] (RX)] 1 sprays NASAL DAILY PRN 06/05/17 [ Last Taken 06/04/17 08:00] Loratadine/Pseudoephedrine [Loratadine-D Tablet] 1 tab PO DAILY PRN 06/05/17 [ Last Taken 06/02/17] Naproxen Sodium [Aleve 220 MG (*)] 220 mg PO DAILY PRN 06/05/17 [Last Taken 04/11 08:00] Sulfamethox/Tmp 800/160 mg [Bactrim Ds] 1 tab PO BID 06/05/17 [Last Taken 08:00] acetaZOLAMIDE [Diamox Sequel 500mg] 500 mg PO Q2D 06/05/17 [Last Taken 06/04/17 08:00] lamOTRIGine [Lamotrigine] 200 mg PO HS 06/05/17 [Last Taken 06/04/17 21:00] - NPO status NPO Since - Liquids (Date): 06/05/17 NPO Since - Liquids (Time): 13:00 NPO Since - Solids (Date): 06/05/17 NPO Since - Solids (Time): 13:00 - Anes Hx Anes Hx: no prior problems - Smoking Hx Smoking Status: Former smoker - Alcohol Use Alcohol Use: Rarely - Family Anes Hx Family Anes Hx: none ANE Labs/Vital Signs - Labs Result Diagrams: 06/05/17 17:40 06/05/17 17:40 - Vital Signs Blood Pressure: 169/96 Heart Rate: 83 Respiratory Rate: 16 O2 Sat (%): 90 Height: 167.64 cm Weight: 123.8 kg ANE Physical Exam - Airway Neck exam: decreased ROM Mallampati Score: Class 3 - Pulmonary Pulmonary: no respiratory distress, no rales or rhonchi - Cardiovascular Cardiovascular: regular rate and rhythym, systolic murmur - ASA Status ASA Status: III (1/6 systolic murmur) ANE Anesthesia Plan Anesthesia Plan: general endotracheal anesthesia Specialized Airway: video laryngoscope
[2017-06-05] MEDS ORDERED: LR 1,000 ML IV ONE (21:08)
[2017-06-05] MEDS ORDERED: fentaNYL 100 MCG/2 ML INJ ONE ×4 (21:13→23:37)
[2017-06-05] MEDS ORDERED: GLYCOPYRROLATE 0.2 MG/1 ML VIAL ONE (21:14)
[2017-06-05] MEDS ORDERED: ROCURONIUM 50 MG/5 ML VIAL ONE ×2 (21:14→22:08)
[2017-06-05] MEDS ORDERED: SUCCINYLCHOLINE CHLORIDE*ANESTHESIA ONLY*200 MG/10 ML SYR IVP ONE (21:14)
[2017-06-05] MEDS ORDERED: PROPOFOL/EMULSION 500 MG/50 ML BOTTLE IV ONE (21:14)
[2017-06-05] MEDS ORDERED: LIDOCAINE 2% 5 ML SDV ONE (21:15)
[2017-06-05] MEDS ORDERED: PROPOFOL 200 MG/20 ML VIAL ONE (21:36)
[2017-06-05] MEDS ORDERED: DEXAMETHASONE 4 MG/ML VIAL ONE ×2 (22:06)
[2017-06-05] MEDS ORDERED: SUGAMMADEX SODIUM 200 MG/2 ML VIAL IVP ONE (22:20)
--- NOTE | 2017-06-05 22:40 | POSTOPPROG ---
Post Op Note Date of Operation: 06/05/17 Surgeon: Cullen Holloway Anesthesiologist: SHAWN Anesthesia: GET(General Endotracheal) Pre-op Diagnosis: INCARCERATED UMBILICAL HERNIA, PERIUMBILICAL RASH, CARBUNCLE Post-op Diagnosis: SAME Indication: VIABLE INCARCERATED OMENTUM IN HERNIA WITH3 CM DEFECT, SMALL 2CC ABSCESS RL Procedure: REPAIR INCARCERATED UMBILICAL HERNIA, SKIN BX, I&D CARBUNCLE IN RLQ Findings: SEE INDICATION LINE Inf/Abcess present in the surg proc area at time of surgery?: Yes Depth: Deep Incisional (Fascial) EBL: Minimal Complications: 0 Specimen(s): HERNIA SAC, CULTURE FROM CARBUNCLE AND SKIN BX
[2017-06-05] MEDS ORDERED: KETOROLAC 30 MG/1 ML SDV ONE (22:45)
[2017-06-05] MEDS ORDERED: NALOXONE HCL 0.4 MG/ML INJ IVP PRN (22:54)
[2017-06-05] MEDS ORDERED: NS 500 ML IV PRN (22:54)
[2017-06-05] MEDS ORDERED: DIAZEPAM 10 MG/2 ML SYR IVP PRN (22:54)
[2017-06-05] MEDS ORDERED: fentaNYL 100 MCG/2 ML INJ IVP PRN (22:54)
[2017-06-05] MEDS ORDERED: PROMETHAZINE HCL 25 MG/ML INJ IVP PRN (22:54)
[2017-06-05] MEDS ORDERED: LABETALOL HCL 5 MG/ML 20 ML MDV IVP PRN (22:54)
--- NOTE | 2017-06-05 22:58 | POSTANESTH ---
Post Anesthetic Evaluation Cardiovascular Status: Normal, Stable, Similar to Pre-Op Cond Respiratory Status: Similar to Pre-op Cond. Level of Consciousness/Mental Status: Can Participate in Eval Pain Control: Adequate, Prn Tx Ordered Nausea/Vomiting Control: Adequate, Prn Tx Ordered Complications Possibly Related to Anesthesia: None Noted
[2017-06-05] MEDS ORDERED: HYDROmorphone HCL/NS/PF 0.4 MG/2 ML SYR IVP PRN (23:08)
[2017-06-05] MEDS ORDERED: HYDROCODONE/APAP 5/325 TAB PO PRN (23:08)
[2017-06-05] MEDS ORDERED: LORATADINE PO PRN (23:10)
[2017-06-05] MEDS ORDERED: PSEUDOEPHEDRINE PO PRN (23:10)
[2017-06-05] MEDS ORDERED: FLUTICASONE NASAL 120 SPRAYS/16 GM MDI EACHNARE PRN (23:10)
[2017-06-05] MEDS ORDERED: D5W 1/2 NS W/ 20 KCl/L 1,000 ML IV SCH (23:30)
[2017-06-05] MEDS ORDERED: HYDROmorphONE/DILAUDID 1 MG/ML INJ ONE (23:36)
[2017-06-05] MEDS ORDERED: 1/2 NS IV SCH (23:45)
[2017-06-05] MEDS ORDERED: D5W IV SCH (23:45)
[2017-06-05] MEDS ORDERED: POTASSIUM CL IV SCH (23:45)
[2017-06-06] MEDS: KETOROLAC 15 MG/1 ML SDV IVP SCH ×3 (00:16→12:34)
[2017-06-06] MEDS ORDERED: SULFAMETHOX/TMP 800/160 MG 1 TAB PO SCH (09:00)
[2017-06-06] MEDS ORDERED: CEPHALEXIN 500 MG CAP PO SCH (09:00)
--- NOTE | 2017-06-06 10:04 | SOAPPROG ---
SOAP Progress Note Assessment/Plan: Assessment/Plan: 62 Y F s/p repair of incarcerated umbilical hernia, I&D of groin abscess, Bx of abdominal rash. POD#1. Doing well. Eager to go home. Path pending. D/c to home. Discussed wound care--will need home health vs in office dressing changes. Pt prefers home health. S: eager to go home. very little pain. O: alert nad no wob rrr abd soft, obese, inc cdi, redness receded but present R groin wound clean 06/06/17 10:01 Objective: Vital Signs Temp Pulse Resp BP Pulse Ox 36.6 C 75 17 161/98 H 94 06/06/17 07:33 06/06/17 07:33 06/06/17 07:33 06/06/17 07:33 06/06/17 07:33 Microbiology 06/05/17 22:33 Gram Stain - Final Abdomen - Eswab Laboratory Results 06/05/17 17:40 06/05/17 17:40 06/05/17 06/06/17 06/07/17 05:59 05:59 05:59 Intake Total 1250 Output Total 110 200 Balance 1140 -200 PT 13.4 SEC (12.0-15.0) 06/05/17 17:40 INR 1.00 (0.83-1.16) 06/05/17 17:40 ICD10 Worksheet Patient Problems: Problems Problem Status Onset Abdominal wall cellulitis Acute Incarcerated hernia Acute Hypoxemia Acute
--- NOTE | 2017-06-06 10:09 | PDIAF ---
- Diagnosis Diagnosis: s/p incarcerated umbilical hernia repair, bx of rash, I&D groin abscess Code Status: Full Code - Medication Management Discharge Medications: Medications to Continue on Transfer Haloperidol 2 mg PO HS 01/03/15 [Last Taken 06/04/17 21:00] Fluticasone Nasal [Flonase Nasal [place]] 1 sprays NASAL DAILY PRN 06/05/17 [Last Taken 06/04/17 08:00] Loratadine/Pseudoephedrine [Loratadine-D 24Hr Tablet] 1 tab PO DAILY PRN [Last Taken 06/02/17] Naproxen Sodium [Aleve 220 MG (*)] 220 mg PO DAILY PRN 06/05/17 [Last Taken 04/11 08:00] Sulfamethox/Tmp 800/160 mg [Bactrim DS] 1 tab PO BID 06/05/17 [Last Taken 08:00] acetaZOLAMIDE [Diamox Sequel 500mg] 500 mg PO Q2D 06/05/17 [Last Taken 06/04/17 08:00] lamOTRIGine [Lamotrigine] 200 mg PO HS 06/05/17 [Last Taken 06/04/17 21:00] Hydrocodone/APAP 5/325 [[place] 5/325 (*)] 1 - 2 tab PO Q4 PRN #20 tab 06/06/17 [ Last Taken Unknown] Discharge Medications: Refer to the Discharge Home Medication list for PRN reason. PICC Care - Routine: N/A - Orders Services needed: Home Care, Registered Nurse Home Care Face to Face: I certify that this patient was under my care and that I had the required [id number] encounter meeting the encounter requirements on the discharge day. My findings support the fact that the patient is homebound as defined in Home Care Face to Face Continued: CMS Chapter 7 Medicare Benefits Manual 30.1.1 , The condition of the patient is such that there exists a normal inability to leave home and consequently, leaving home would require a considerable and taxing effort. Isolation Type: None Diet Recommendation: no restrictions on diet Diet Texture: Regular Texture Diet Wound Care Instructions: please change r groin abscess dressing. may use 1/4 iodoform or plain gauze packing and cover with gauze, every other day. ok for patient to get wounds wet in the shower. no baths or pools. Activity/Weight Bearing Restrictions: No lifting over 15 lbs. - Follow Up Care Current Providers and Referrals: Patient,NotPresent [Unknown] - As per Instructions Cullen Holloway MD [Medical Doctor] -
--- NOTE | 2017-06-06 11:53 | ASMTCASEMG ---
Type Of Residence What kind of residence do Answers: House you live in? Case Management Evaluation Functional: Able to Answers: Yes return Home with Prior Level of Function/Care Discharge Plan Comments Coordination Status Comments Notes: Patient here following surgery for umbilical hernia. Dr. Holloway office called and said patient will need healthcare network pricing consultant for an abcess taht will need wound care and packing. Spoke with patient who says she would like [facility] for RN. [facility] confirmed they will be able to take patient and will follow patient after discharge. Date Signed: 06/06/2017 11:53 AM Electronically Signed By:ANDRZEJ Catherine
--- NOTE | 2017-06-06 11:56 | ASDISCHSUM ---
Discharge Information Plan Status:Home with Home Health Medically Cleared to Leave:06/05/2017 Discharge Date:06/05/2017 CM D/C Disposition:Home Health Service [facility] D/C Disposition:Home, Routine, Self-Care Projected Discharge Date:06/06/2017 02:00 PM Transportation at D/C:Family Discharge Delay Reason: Follow-Up Date:06/06/2017 02:00 PM Discharge Slot: Final Diagnosis:Incarcerated umbilical hernia , abdominal cellulitis, abcess Placement Information Patient Contact Information Contact Name:TY Relationship: Address:[address] [place] [address] Work Phone: City:[place] Phone: [facility] Code:[place] [id number] Email: Financial Information Financial Class:[employer] Primary Plan Desc:[facility] Primary Plan Number:[id number] Secondary Plan Desc: Secondary Plan Number: Assessment Information [facility] Initial CM Assessment Type Of Residence What kind of residence do Answers: House you live in? Case Management Evaluation Functional: Able to Answers: Yes return Home with Prior Level of Function/Care Discharge Plan Comments Coordination Status Comments Notes: Patient here following surgery for umbilical hernia. Dr. Holloway office called and said patient will need post anesthesia care unit nurse for an abcess taht will need wound care and packing. Spoke with patient who [facility] to take patient and will follow patient after discharge. Date Signed: 06/06/2017 11:53 AM Electronically Signed By:ANDRZEJ Catherine Intervention Information
[2017-06-06 12:08] VITALS: BP 154/80; PULSE 82; RESP 14; TEMP 98.1; O2SAT 92
[2017-06-06] MEDS ORDERED: lamoTRIgine 100 MG TAB PO SCH (21:00)
[2017-06-06] MEDS ORDERED: HALOPERIDOL 2 MG TAB PO SCH (21:00)
[2017-06-07] MEDS ORDERED: ACETAZOLAMIDE 500 MG PO SCH (09:00)
== END 2017-06-06 13:56 | disposition home health service (06) ==
LOC: INTOOBSV 17:24 → F1N 18:15
PROVIDERS: ADMIT Surgery; ATTEND Surgery
PROC: 0HB7XZX Excision of Abdomen Skin, External Approach, Diagnostic (ICD-10-PCS; principal; 2017-06-05 22:00)
PROC: 0WQF0ZZ Repair Abdominal Wall, Open Approach (ICD-10-PCS; principal; 2017-06-05 22:00)
PROC: 0J980ZX Drainage of Abdomen Subcutaneous Tissue and Fascia, Open Approach, Diagnostic (ICD-10-PCS; principal; 2017-06-05 22:00)
DX: K42.0 Umbilical hernia with obstruction, without gangrene (principal); R21 Rash and other nonspecific skin eruption; L02.231 Carbuncle of abdominal wall
CPT/HCPCS: 10061; 11100; 49587; G0378; 82947-QW; J0330; J1100; J1170; J1885; J2250; J2704; J3010; J3370

== ENCOUNTER 2017-06-11 08:28 | Emergency (ER) | payer OTHER ==
[2017-06-11 08:38] VITALS: BP 170/103; PULSE 95; RESP 20; TEMP 97.7; O2SAT 94
--- NOTE | 2017-06-11 09:02 | EDPHY ---
H & P Time Seen by Provider: 06/11/17 08:42 HPI/ROS: CHIEF COMPLAINT: Rash HISTORY OF PRESENT ILLNESS: The patient is a 62-year-old female who presents to the emergency department with a new rash. The patient states her current symptoms started a week ago Monday. She developed a abdominal rash and was diagnosed with cellulitis. She is given IV antibiotics on Monday and Monday. She was seen in the emergency department again on Monday by Dr. Calderon who started on Bactrim. During the course of her workup for the rash she had a CT scan which diagnosed a hernia. The abdominal rash improved. She had her hernia repaired on Monday by Dr. Holloway. She reports that he felt the patient's rash was secondary to dermatitis rather than cellulitis. Patient also states that she had a cyst removed when she had her hernia repair. She was kept on the Bactrim because of the cyst removal. She had wound check yesterday and the nurse stated that the surgical site and cyst site were healing well. This morning the patient woke with diffuse abdominal rash. It is also noted on her arms bilaterally. It is red. Papular. She has no tenderness. No fevers or chills. REVIEW OF SYSTEMS: My complete review of systems is negative except as mentioned in the HPI. Past Medical/Surgical History: Includes cardiomyopathy, breathing issues, cellulitis Past surgical history: Hernia repair, cyst removal Social history: The patient does not smoke Smoking Status: Former smoker Physical Exam: 36.5, 170/103, 95, 20, 94% on room air GENERAL: Well-appearing, in no acute distress, alert. HEENT: Eyes normal to inspection, normal pharynx, no signs of dehydration. NECK: [No thyromegaly, no lymphadenopathy, supple. RESPIRATORY: Clear to auscultation bilaterally, no rales, rhonchi or wheezing. CVS: Regular rate and rhythm, no rubs, murmurs, or gallops. ABDOMEN: Soft, nontender, nondistended, no organomegaly. The patient's surgical site is clean dry and intact. I can visualize the demarcation with a pen of her previous abdominal rash. The redness is minimal. Patient's right lower abdominal cyst site is clean dry and intact with no surrounding erythema or palpable mass. BACK: Normal to inspection, no CVA tenderness. SKIN: Normal color, warm, dry. No pallor. The patient has a diffuse abdominal rash that is papular. Is also noted on arms bilaterally. She has a few papular lesions on her back. No target lesions. No petechiae. EXTREMITIES: No pedal edema, no calf tenderness, no Homans sign or cords, no joint swelling. NEURO/PSYCH: Alert and oriented x3, normal mood and affect, normal motor sensory exam. Constitutional: Initial Vital Signs Temperature (C) 36.5 C 06/11/17 08:32 Heart Rate 95 06/11/17 08:32 Respiratory Rate 20 06/11/17 08:32 Blood Pressure 170/103 H 06/11/17 08:32 O2 Sat (%) 94 06/11/17 08:32 O2 Delivery Mode Room Air Allergies/Adverse Reactions: No Known Allergies Allergy (Verified 06/11/17 08:38) Home Medications: Medication Instructions Recorded Haloperidol 2 mg PO HS 01/03/15 Fluticasone Nasal [Flonase Nasal 1 sprays NASAL DAILY PRN 06/05/17 [place]] Loratadine/Pseudoephedrine 1 tab PO DAILY PRN 06/05/17 [Loratadine-D 24Hr Tablet] Naproxen Sodium [Aleve 220 MG (*)] 220 mg PO DAILY PRN 06/05/17 Sulfamethox/Tmp 800/160 mg 1 tab PO BID 06/05/17 [Bactrim DS] acetaZOLAMIDE [Diamox Sequel 500mg] 500 mg PO Q2D 06/05/17 lamOTRIGine [Lamotrigine] 200 mg PO HS 06/05/17 Hydrocodone/APAP 5/325 [[place] 1 - 2 tab PO Q4 PRN #20 tab 06/06/17 5/325 (*)] Hydrocodone Bit/Acetaminophen 06/11/17 Medical Decision Making ED Course/Re-evaluation: In the emergency department I discussed possible etiologies with the patient. I recommended she discontinue the Bactrim. Her rash is consistent with the Bactrim related rash. The patient has been on Bactrim for 7 days since her cyst removal. I do not feel she needs to be continued on antibiotics at this time. I discussed this with the patient. She agrees with the plan. The patient will observed to see her rash improved over the next 24-48 hours. If not she will be rechecked in the emergency department with a primary care physician. She is given warnings prior to leaving. She will return with worsening symptoms. Differential Diagnosis: My differential includes but is not limited to medication reaction, allergic rash, cellulitis, abscess, Montalvo-Bhavesh syndrome, TEN Departure - Departure Disposition: Home, Routine, Self-Care Clinical Impression: Rash Condition: Good Instructions: Acute Rash (ED) Additional Instructions: Return with increasing rash, fever, abdominal pain, nausea, vomiting or any other concerns. Referrals: Alonso Freedman MD [Primary Care Provider] - 1-2 days without fail
== END 2017-06-11 09:06 | disposition home or self-care (01) ==
LOC: CED 08:28
DX: R21 Rash and other nonspecific skin eruption (principal); Z87.891 Personal history of nicotine dependence

== ENCOUNTER → 2017-06-24 | Outpatient (CLI) | payer OTHER | LOC: FIMAGING 11:33 | DX: S83.242A Other tear of medial meniscus, current injury, left knee, initial encounter (principal); M23.92 Unspecified internal derangement of left knee; M25.462 Effusion, left knee ==

== ENCOUNTER → 2017-07-12 | Outpatient (CLI) | payer OTHER ==
[~2017-07-12] MED LIST: MIDAZOLAM 2 MG/2 ML VIAL ONE
--- NOTE | 2017-07-12 15:58 | CPEKG ---
Heart Rate: 91 RR Interval: 659 P-R Interval: 228 QRSD Interval: 76 QT Interval: 372 QTC Interval: 458 P [place]: 72 QRS [place]: 24 T Wave [place]: 48 EKG Severity - ABNORMAL ECG - EKG Impression: SINUS RHYTHM EKG Impression: FIRST DEGREE AV BLOCK EKG Impression: FIRST DEGREE AVB IS NEW IN COMPARISON TO PRIOR ECG Electronically Signed By: Adis Aaron 16-Jul-2017 10:44:08
== END ==
LOC: FPAT 15:21
PROVIDERS: ATTEND Orthopaedic Surgery Sports Medicine
DX: Z01.810 Encounter for preprocedural cardiovascular examination (principal); R94.31 Abnormal electrocardiogram [ECG] [EKG]
CPT/HCPCS: J2250

== ENCOUNTER 2017-07-13 09:00 | Day surgery (SDC) | payer OTHER ==
[2017-07-13] MEDS ORDERED: ceFAZolin 2 GM/SWFI 2 GM/20 ML SYR IVP ONE (09:10)
[2017-07-13] MEDS ORDERED: LR 1,000 ML IV ONE (09:11)
[2017-07-13] MEDS ORDERED: BUPIVACAINE 0.25% 30 ML SDV ONE (09:16)
[2017-07-13] MEDS ORDERED: ONDANSETRON 4 MG/2 ML VIAL IVP PRN (10:16)
[2017-07-13] MEDS ORDERED: ALBUTEROL 3 ML DEYVIAL IH PRN (10:16)
[2017-07-13] MEDS ORDERED: HYDROmorphONE/DILAUDID 1 MG/ML INJ IVP PRN (10:16)
[2017-07-13] MEDS ORDERED: LR 500 ML IV PRN (10:16)
[2017-07-13] MEDS ORDERED: PROMETHAZINE HCL 25 MG/ML INJ IVP PRN (10:16)
[2017-07-13] MEDS ORDERED: OXYCODONE/APAP 5/325 TAB PO PRN (10:16)
[2017-07-13] MEDS ORDERED: NALOXONE HCL 0.4 MG/ML INJ IVP PRN (10:16)
[2017-07-13] MEDS ORDERED: MIDAZOLAM 2 MG/2 ML VIAL IVP ONE (10:16)
[2017-07-13] MEDS ORDERED: HYDROCODONE/APAP 5/325 TAB PO PRN (10:16)
[2017-07-13] MEDS ORDERED: fentaNYL 100 MCG/2 ML INJ IVP PRN (10:16)
[2017-07-13] MEDS ORDERED: ACETAMINOPHEN 500 MG TAB PO PRN (10:16)
--- NOTE | 2017-07-13 10:18 | PDANEPAE ---
ANE History of Present Illness R Knee scope ANE Past Medical History - Cardiovascular History Hx Hypertension: No Hx Arrhythmias: No Hx Chest Pain: Yes Hx Coronary Artery / Peripheral Vascular Disease: No Hx CHF / Valvular Disease: No Hx Palpitations: No Cardiovascular History Comment: Pt states she has occasional Hypertensive reading but is not on medication for it and it has not been diagnosed. She belives it is stress related. Occasional "Minor twinges" chest pain relieved by rest. undiagnosed/treated. - Pulmonary History Hx COPD: No Hx Asthma/Reactive Airway Disease: No Hx Recent Upper Respiratory Infection: No Hx Oxygen in Use at Home: No Hx Sleep Apnea: No Sleep Apnea Screening Result - Last Documented: Positive - Neurologic History Hx Cerebrovascular Accident: No Hx Seizures: No Hx Dementia: No - Endocrine History Hx Diabetes: No - Renal History Hx Renal Disorders: No - Liver History Hx Hepatic Disorders: No - Neurological & Psychiatric Hx Hx Neurological and Psychiatric Disorders: Yes Neurological / Psychiatric History Comment: Bipolar Disorder - Cancer History Hx Cancer: No - Congenital Disorder History Hx Congenital Disorders: No - GI History Hx Gastrointestinal Disorders: No - Other Health History Other Health History: HX of anemia many years ago - Chronic Pain History Chronic Pain: No - Surgical History Prior Surgeries: Umbilical hernia repair 2017 ANE Review of Systems Review of Systems: - Exercise capacity METS (RN): 3 METS ANE Patient History - Allergies Allergies/Adverse Reactions: sulfamethoxazole [From Bactrim] Allergy (Mild, Verified 07/11/17 11:59) Rash trimethoprim [From Bactrim] Allergy (Verified 07/11/17 11:58) - Home Medications Home Medications: Haloperidol 2 mg PO HS 01/03/15 [Last Taken 06/04/17 21:00] Fluticasone Nasal [Flonase Nasal [place]] 1 sprays NASAL DAILY PRN 06/05/17 [Last Taken 06/04/17 08:00] Loratadine/Pseudoephedrine [Loratadine-D 24Hr Tablet] 1 tab PO DAILY PRN [Last Taken 06/02/17] Naproxen Sodium [Aleve 220 MG (*)] 220 mg PO DAILY PRN 06/05/17 [Last Taken 04/11 08:00] acetaZOLAMIDE [Diamox Sequel 500mg] 500 mg PO Q2D 06/05/17 [Last Taken 06/04/17 08:00] lamOTRIGine [Lamotrigine] 200 mg PO HS 06/05/17 [Last Taken 06/04/17 21:00] Hydrocodone Bit/Acetaminophen 06/11/17 [Last Taken Unknown] - NPO status NPO Since - Liquids (Date): 07/12/17 NPO Since - Liquids (Time): 20:00 NPO Since - Solids (Date): 07/12/17 NPO Since - Solids (Time): 20:00 - Smoking Hx Smoking Status: Former smoker - Family Anes Hx Family Hx Anesthesia Complications: NA ANE Labs/Vital Signs - Labs Result Diagrams: 07/12/17 15:46 - Vital Signs Heart Rate: 94 Respiratory Rate: 17 O2 Sat (%): 98 Height: 167.64 cm Weight: 123.377 kg ANE Physical Exam - Airway Neck exam: FROM Mallampati Score: Class 2 Mouth exam: normal dental/mouth exam - Pulmonary Pulmonary: clear to auscultation - Cardiovascular Cardiovascular: regular rate and rhythym - ASA Status ASA Status: II ANE Anesthesia Plan Anesthesia Plan: GA w LMA
[2017-07-13] MEDS ORDERED: fentaNYL 100 MCG/2 ML INJ ONE ×2 (10:39→11:30)
[2017-07-13] MEDS ORDERED: PROPOFOL 200 MG/20 ML VIAL ONE (10:39)
--- NOTE | 2017-07-13 11:11 | PDHPUP ---
History & Physical Update H&P update statement: This history and physical update is based on an assessment of the patient which was completed after admission or registration (within 24 hours), but prior to the surgery/procedure. H&P update: no change in patient's condition since H&P completed
[2017-07-13] MEDS ORDERED: ONDANSETRON 4 MG/2 ML VIAL ONE (11:16)
[2017-07-13] MEDS ORDERED: DEXAMETHASONE 4 MG/ML VIAL ONE ×2 (11:16)
[2017-07-13] MEDS ORDERED: RANITIDINE 50 MG/2 ML VIAL ONE (11:31)
[2017-07-13] MEDS ORDERED: LABETALOL HCL 5 MG/ML 20 ML MDV ONE (11:33)
[2017-07-13 12:25] VITALS: PULSE 79
[2017-07-13 12:42] VITALS: TEMP 97.7
[2017-07-13] MEDS ORDERED: HYDROCODONE/APAP 5/325 TAB ONE (12:59)
[2017-07-13 13:14] VITALS: RESP 18
[2017-07-13 13:32] VITALS: O2SAT 94
[2017-07-13 14:06] VITALS: BP 157/90
--- NOTE | 2017-07-13 22:23 | GOP ---
[f rep st] OPERATIVE REPORT DATE OF OPERATION: 07/13/2017 SURGEON: Linda Parada MD ANESTHESIA: General. PREOPERATIVE DIAGNOSIS: 1. Medial meniscus tear, left knee. 2. Lateral meniscus tear, left knee. 3. Chondromalacia, left knee. POSTOPERATIVE DIAGNOSIS: 1. Medial meniscus tear, left knee. 2. Lateral meniscus tear, left knee. 3. Chondromalacia, left knee. PROCEDURE PERFORMED: 1. Left knee arthroscopy with partial medial meniscectomy. 2. Partial lateral meniscectomy, left knee. 3. Chondroplasty, left knee. FINDINGS: INDICATIONS: This is a 62-year-old female who injured her knee resulting in the above diagnoses. Sh keila has failed nonoperative treatment and is being admitted for surgical care. DESCRIPTION OF PROCEDURE: After an adequate general anesthetic was obtained, exam under anesthesia r evealed a stable Alexys. There was no varus/valgus posterior or posterolateral laxity. Pivot-shift stable. Patient's left lower extremity was placed in a leg-holding device with adequate padding and was prepp ed and draped in the usual sterile fashion. The limb was exsanguinated with the Esmarch and tourniqu et elevated to 300 mmHg pressure. The standard superolateral, anteromedial, and anterolateral arthro scopic portals were established with an 11 blade. A 4 mm, 30-degree arthroscope was introduced throu gh the anterolateral portal and a systematic examination of the knee was carried out. Suprapatellar pouch, medial and lateral gutter revealed moderate synovitis. The patellar and trochlear articular s urfaces revealed diffuse shaggy grade 3 chondromalacia. A chondroplasty was performed on both surfac es. The ACL and PCL were normal. The lateral compartment was entered. There was grade 3 chondromalacia in the lateral tibial plateau with grade 1-2 softening of the lateral femoral condyle. A chondroplasty was performed. There was a small radial tear in the lateral meniscus at the junction of the middle third and posterior horn. A partial lateral meniscectomy was carried out, resecting this back to a stable 5-6 mm rim. The final rim was contoured and balanced with a small shaver. The medial compartment was entered. There was grade 2-3 chondromalacia diffusely over the weight-arturo ring surface of the medial femoral condyle, which did require a chondroplasty. There was grade 1 sof tening of the tibial plateau. There was a deep radial tear in the posterior horn of the medial meniscus. The meniscal root was int act; however, this radial tear did extend almost to the meniscal capsular junction. This was un-repa irable. A partial medial meniscectomy was carried out, resecting this back to a stable 1-2 mm rim. The final rim was contoured and balanced with a small shaver. The 70-degree scope was introduced posteromedially and posterolaterally confirming the anterior findi ngs with no further posterior pathology noted. The knee was irrigated until clear. The portals were closed using interrupted 3-0 nylon sutures. 30 cc of 0.25% Marcaine with epinephrine was injected intra-articularly. Sterile dressings were applied followed by an Grover wrap. The tourniquet was deflated after 32 minutes tourniquet time. There were no complications. The patient tolerated the procedure well and returned to the recovery r oom in stable condition. /[id number]/MODL
== END 2017-07-13 13:45 | disposition home or self-care (01) ==
LOC: FSGY 09:00
PROVIDERS: ATTEND Orthopaedic Surgery Sports Medicine
PROC: 0SBD4ZZ Excision of Left Knee Joint, Percutaneous Endoscopic Approach (ICD-10-PCS; principal; 2017-07-13 10:45)
DX: S83.242A Other tear of medial meniscus, current injury, left knee, initial encounter (principal); S83.282A Other tear of lateral meniscus, current injury, left knee, initial encounter; M22.42 Chondromalacia patellae, left knee; K21.9 Gastro-esophageal reflux disease without esophagitis; X58.XXXA Exposure to other specified factors, initial encounter
CPT/HCPCS: J0171; J0690; J1100; J2405; J2704; J2780; J3010; J3490

== ENCOUNTER → 2017-08-03 | Outpatient (CLI) | payer OTHER | LOC: CIMAGING 17:28 | PROVIDERS: ATTEND Obstetrics & Gynecology | DX: N85.4 Malposition of uterus (principal) ==

== ENCOUNTER 2018-03-28 09:43 | Observation (INO) | payer OTHER ==
--- NOTE | 2018-03-28 08:34 | PDGENHP ---
History and Physical History and Physical: Assessment and Plan: 1. Third degree uterine prolapse Le has third-degree uterine prolapse with a second-degree traction cystocele. She also has stress incontinence. We reviewed all conservative and surgical options. She does not want to try a different pessary. She wishes surgical intervention. This will be a robotic hysterectomy, uterosacral ligament colpopexy, and trans-obturator sling. A retropubic sling would be difficult secondary to the pannus. 2. Genuine stress incontinence, female Subjective: Patient ID: Le Harmon is a 62 y.o. female who presents to [facility] for prolapse. HPI Le is a 62-year-old para 1 woman who presents to discuss uterine prolapse. This has become more symptomatic since last March. She has seen Odalis Maya and Jessica Meyer. Jessica fitted her with a pessary which she found uncomfortable. She feels a protrusion just at the vaginal opening. At times she has difficulty passing bowel movements but not urination. She leaks urine with coughing laughing and sneezing. She does have some urgency secondary to her diuretics. 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 Her history is significant for an umbilical hernia repaired with mesh by Fazal Holloway. She lives in [place]. PastMedicalHistory Past Medical History: Diagnosis Date Arthritis Hypertension Mental disorder Pulmonary disease Lungs are small PastSurgicalHistory Past Surgical History: Procedure Laterality Date HERNIA REPAIR 05/2017 KNEE SURGERY Left 06/2017 PREVIOUS SURGERIES WISDOM TOOTH EXTRACTION CURRENT MEDICATIONS: Current Outpatient Prescriptions Medication Sig acetaZOLAMIDE (DIAMOX) 500 mg 12 hr capsule TK 1 C PO ONCE A DAY aspirin 81 mg EC tablet Take 81 mg by mouth daily. ergocalciferol, vitamin D2, (VITAMIN D PO) haloperidol (HALDOL) 2 mg tablet TK 1 T PO QHS IBUPROFEN PO lamoTRIgine (LAMICTAL) 100 mg tablet TK 1 T PO BID losartan (COZAAR) 25 mg tablet TK 1 T PO D No current facility-administered medications for this visit. ALLERGIES: Bactrim [sulfamethoxazole-trimethoprim] I have reviewed, verified and agree with the past medical, surgical, , family, social and ROS history as documented by the RN today. Objective: Vital Signs: Visit Vitals BP 142/88 Pulse 85 Temp 37.4 C (99.3 F) (Temporal Artery) Resp 14 Ht 1.638 m (5' 4.5") Wt (!) 120.1 kg (264 lb 12.8 oz) SpO2 93% BMI 44.75 kg/m Physical Exam Gen: This is an alert, well developed woman in no distress. Neuro: She moves all extremities. Psych: She is appropriate, oriented, with normal affect. Neck: No thyroid enlargement, adenopathy, or tenderness. Lungs: Clear to ascultation, no wheezes or rales. Heart: Regular rate and rhythm without obvious murmurs. Abdomen: Soft, non-tender, without guarding, rebound, or masses. Obese. Extremities: No edema or cyanosis. Pelvic: Normal external genitalia. Non-gaping introitus, vagina without discharge. Cervix without lesions or discharge. Uterus normal sized, mobile, non -tender. Adnexa non-tender without enlargement. The uterus descends 2+1. There is a second-degree traction cystocele. The posterior wall is fairly well supported. DATA: I have reviewed the pertinent medical records. TIME/COMMUNICATION: I personally spent a total of 45 minutes. Of that 35 minutes was counseling/ coordination of patient's care. See my note above for details. Giorgio Aguilar MD Board Certified Female Pelvic Medicine and Reconstructive Surgery Director of Minimally Invasive Gynecologic Surgery, [facility] Surgeon in Minimally Invasive Gynecologic Surgery [facility] Surgeon in Robotic Surgery
[2018-03-28] MEDS ORDERED: ACETAMINOPHEN 500 MG TAB PO ONE (09:57)
[2018-03-28] MEDS ORDERED: ceFAZolin 2 GM/DEXTROSE 100 ML IV ONE (09:57)
[2018-03-28] MEDS ORDERED: GABAPENTIN 300 MG CAP PO ONE (09:57)
[2018-03-28] MEDS ORDERED: LR 1,000 ML IV ONE (09:57)
[2018-03-28] MEDS ORDERED: LIDOCAINE 1% 2 ML INJ ID PRN (09:57)
[2018-03-28] MEDS ORDERED: MIDAZOLAM 2 MG/2 ML VIAL IVP ONE (10:03)
--- NOTE | 2018-03-28 10:05 | PDANEPAE ---
ANE History of Present Illness dysmenorrhea, urinary incontinence. here for robotic assist MARIIA, sling SENA Past Medical History - Cardiovascular History Hx Hypertension: Yes Hx Arrhythmias: No Hx Chest Pain: No Hx Coronary Artery / Peripheral Vascular Disease: No Hx CHF / Valvular Disease: No Hx Palpitations: No Cardiovascular History Comment: pcp monitors. takes diamox every 2 days - Pulmonary History Hx COPD: No Hx Asthma/Reactive Airway Disease: No Hx Recent Upper Respiratory Infection: No Hx Oxygen in Use at Home: No Hx Sleep Apnea: No Sleep Apnea Screening Result - Last Documented: Positive Pulmonary History Comment: hadley triggers - Neurologic History Hx Cerebrovascular Accident: No Hx Seizures: No Hx Dementia: No - Endocrine History Hx Diabetes: No - Renal History Hx Renal Disorders: No - Liver History Hx Hepatic Disorders: No - Neurological & Psychiatric Hx Hx Neurological and Psychiatric Disorders: Yes Neurological / Psychiatric History Comment: bipolar - Cancer History Hx Cancer: No - Congenital Disorder History Hx Congenital Disorders: No - GI History Hx Gastrointestinal Disorders: No - Other Health History Other Health History: wears glasses - Chronic Pain History Chronic Pain: No - Surgical History Prior Surgeries: 07/13/17 left knee scope with Tal. 06/05/17 umb hernia repair with Jewel SHETTY Review of Systems Review of Systems: - Exercise capacity METS (RN): 3 METS ANE Patient History - Allergies Allergies/Adverse Reactions: sulfamethoxazole [From Bactrim] Allergy (Verified 03/07/18 12:57) Rash trimethoprim [From Bactrim] Allergy (Verified 03/07/18 12:57) Rash - Home Medications Home Medications: Haloperidol 2 mg PO HS 01/03/15 [Last Taken 06/04/17 21:00] Fluticasone Nasal [Flonase Nasal Halstad] 1 sprays NASAL DAILY PRN 06/05/17 [Last Taken 06/04/17 08:00] acetaZOLAMIDE [Diamox Sequel 500mg] 500 mg PO Q2D 06/05/17 [Last Taken 06/04/17 08:00] lamOTRIGine [Lamotrigine] 200 mg PO HS 06/05/17 [Last Taken 06/04/17 21:00] Aspirin EC [Aspirin EC 81 mg (*)] 81 mg PO DAILY 03/05/18 [Last Taken Unknown] Cholecalciferol Vit D3 [Vitamin D3 (*)] 1,000 units PO DAILY 03/05/18 [Last Taken Unknown] Ibuprofen [Motrin (*)] 600 mg PO Q12H PRN 03/05/18 [Last Taken Unknown] Loratadine 10 mg PO DAILY 03/05/18 [Last Taken Unknown] Losartan Potassium [Cozaar 25 mg (*)] 25 mg PO DAILY 03/05/18 [Last Taken Unknown] - Smoking Hx Smoking Status: Former smoker - Family Anes Hx Family Hx Anesthesia Complications: none ANE Labs/Vital Signs - Vital Signs Height: 167.64 cm Weight: 120.202 kg
[2018-03-28] MEDS ORDERED: ONDANSETRON 4 MG/2 ML VIAL ONE (10:11)
[2018-03-28] MEDS ORDERED: SUGAMMADEX SODIUM 200 MG/2 ML VIAL IVP ONE (10:11)
[2018-03-28] MEDS ORDERED: LIDOCAINE HCL 160 MG/4 ML LTA KIT TP ONE (10:11)
[2018-03-28] MEDS ORDERED: GLYCOPYRROLATE 0.2 MG/1 ML VIAL ONE (10:11)
[2018-03-28] MEDS ORDERED: LIDOCAINE 2% 100 MG/5 ML SYR ONE (10:11)
[2018-03-28] MEDS ORDERED: ROCURONIUM 100 MG/10 ML VIAL ONE (10:11)
[2018-03-28] MEDS ORDERED: DEXAMETHASONE 4 MG/ML VIAL ONE (10:11)
[2018-03-28] MEDS ORDERED: PROPOFOL 200 MG/20 ML VIAL ONE (10:11)
[2018-03-28] MEDS ORDERED: fentaNYL 250 MCG/5 ML INJ ONE (10:11)
[2018-03-28] MEDS ORDERED: KETOROLAC 30 MG/1 ML SDV ONE (10:19)
[2018-03-28] MEDS ORDERED: RANITIDINE 50 MG/2 ML VIAL ONE (10:19)
[2018-03-28] MEDS ORDERED: PHENYLEPHRINE HCL 100 MCG/ML SYR ONE (10:19)
[2018-03-28] MEDS ORDERED: BUPIVACAINE/EPI 0.5% 30 ML SDV ONE (10:56)
[2018-03-28] MEDS ORDERED: HYDROmorphONE/DILAUDID 2 MG/ML INJ ONE (12:49)
[2018-03-28] MEDS ORDERED: FLUTICASONE NASAL 120 SPRAYS/16 GM MDI EACHNARE PRN (13:04)
--- NOTE | 2018-03-28 13:04 | POSTOPPROG ---
Post Op Note Date of Operation: 03/28/18 Surgeon: Giorgio Aguilar Senior Cytogenetic Technologist: Shannan Avina Anesthesia: GET(General Endotracheal) Pre-op Diagnosis: uterovaginal prolapse Post-op Diagnosis: same Procedure: robotic hyst/bso, US Lig colpopexy, cysto, left ureterolysis Inf/Abcess present in the surg proc area at time of surgery?: No EBL: 50-100 Complications: none
[2018-03-28] MEDS ORDERED: ONDANSETRON DISINTEGRATING 4 MG TAB PO PRN (13:05)
[2018-03-28] MEDS ORDERED: OXYCODONE/APAP 5/325 TAB PO PRN (13:05)
[2018-03-28] MEDS ORDERED: ONDANSETRON 4 MG/2 ML VIAL IVP PRN (13:05)
[2018-03-28] MEDS ORDERED: LR 1,000 ML IV SCH (13:30)
[2018-03-28] MEDS: KETOROLAC 15 MG/1 ML SDV IVP SCH (18:00)
[2018-03-28] MEDS ORDERED: HALOPERIDOL 2 MG TAB PO SCH (21:00)
[2018-03-28] MEDS ORDERED: lamoTRIgine 100 MG TAB PO SCH (21:00)
[2018-03-28] MEDS: HYDROCODONE/APAP 5/325 TAB PO PRN (21:57)
[2018-03-29] MEDS: KETOROLAC 15 MG/1 ML SDV IVP SCH ×3 (00:03→13:35)
[2018-03-29 06:26] LABS: PLATELET COUNT 217 10^3/uL (150-400)
--- NOTE | 2018-03-29 08:06 | GOP ---
DATE OF OPERATION: 03/28/2018 SURGEON: Giorgio Aguilar MD CEREAL MAKER: Shannan Avina CFA ANESTHESIA: General. PREOPERATIVE DIAGNOSIS: 1. Uterovaginal prolapse. 2. Stress urinary incontinence. POSTOPERATIVE DIAGNOSIS: PROCEDURE PERFORMED: 1. Robotic-assisted total laparoscopic hysterectomy, bilateral salpingo- oophorectomy. 2. Uterosacral ligament colpopexy. 3. Left ureterolysis. 4. Retropubic sling. 5. Cystoscopy. FINDINGS: SPECIMENS: Uterus, tubes, and ovaries. DESCRIPTION OF PROCEDURE: The patient was taken to the operating room where she was identified. General anesthesia was administered and found to be adequate. She was placed in the lithotomy position and prepared and draped in normal sterile fashion. A [email or web address] uterine manipulator was placed into the endometrial cavity and sutured to the cervix. A Monroe catheter was then placed. A 1 cm infraumbilical incision was made with a scalpel. The Veress needle with the CO2 gas flowing was advanced into the peritoneal cavity. The abdomen was then insufflated with carbon dioxide gas. The 12 mm trocar, followed by the laparoscope were then inserted. The upper abdomen was unremarkable. Two lateral ports were placed on the right and 1 left under direct visualization. She then was placed in Trendelenburg position and the da Love robot docked on the left side. The instruments were then brought into the abdominal cavity under direct visualization. The uterus, tubes, and ovaries were grossly unremarkable. She did have endometriosis with scarring, especially in the posterior cul-de-sac. This pulled the left ureter close to the cervix. As a result, a left ureterolysis was required to safely free the left ureter from the adhesions pulling it medially putting it at risk for ureteral injury during ligation of the left uterine artery. The left round ligament was divided. The anterior leaf of the broad ligament was incised towards the bifurcation of the left common iliac vessels. A window was created anterior to the left ureter to skeletonize the infundibulopelvic vessels. They were then cauterized and transected. The anterior leaf of the broad ligament was then incised over the left uterine vessels and across the cervix. The bladder was gently dissected off the cervix and upper vagina. The left ureter was gently dissected free and lateralized off the overlying peritoneum. Endometriosis and scarring from the pelvic brim all the way down to the bladder. Once this was accomplished, the left uterine vasculature was able to be cauterized and transected safely. A similar procedure was performed on the patient's right side. A circumferential colpotomy incision was then made and the specimen removed through the vagina. The vaginal cuff was then closed with a running suture of 0 V-Loc 180. A bilateral uterosacral ligament colpopexy was performed by attaching the lateral aspects of the vaginal cuff to the ipsilateral uterosacral ligament near the coccygeus-sacrospinous ligament complex. This was accomplished with 0 Ethibond suture. The pelvis was then irrigated with sterile saline and hemostasis was present. The robot was then undocked. The fascia was closed with 0 Vicryl, skin with 4-0 Monocryl. A mid urethral incision was then made with a scalpel. After the incision was made, tunnels were created bilaterally around the urethra toward the space of Retzius. The retropubic trocar was placed through the tunnels, redirected around the symphysis pubis and out through a suprapubic stab incision. The sling had been attached and cystoscopy was performed. The blue attachment to the sling was noted to be in the left dome of the bladder. It was removed and reattached to the trocar. It then was replaced and a second pass and cystoscopy showed it remained somewhat close to the mucosal layer. As a result , the entire sling was then removed. The epithelium was then closed with 2-0 Vicryl, the skin with 4-0 Monocryl. Anesthesia was reversed and the patient taken the PACU awake, in stable condition. COMPLICATIONS: None. DISPOSITION: Patient stable to PACU. /[id number]/MODL MTDD
[2018-03-29] MEDS ORDERED: acetaZOLAMIDE 250 MG TAB PO SCH (09:00)
[2018-03-29] MEDS ORDERED: LOSARTAN POTASSIUM 25 MG TAB PO SCH (09:00)
[2018-03-29] MEDS ORDERED: CETIRIZINE 10 MG TAB PO SCH (09:00)
[2018-03-29] MEDS: HYDROCODONE/APAP 5/325 TAB PO PRN ×2 (13:35→18:25)
[2018-03-29 14:21] VITALS: BP 147/79
[2018-03-29] MEDS ORDERED: PNEUMOCOCCAL 0.5ML VACCINE VIAL IM ONE (16:36)
--- NOTE | 2018-03-29 16:41 | PDFACE2FAC ---
Face to Face Encounter 1. I certify that this patient is under my care and that I, or a nurse practitioner or physician's optometry assistant working with me, had a [id number] encounter that meets the physician grrd-qa-fshy encounter requirements with this patient on 03/29/18. 2. I certify that based on my findings, the following services are medically necessary home health services: [X Nursing] [X Home oxygen] 3. The medical condition and clinical findings that support the need for specialized skills, knowledge and judgement of the above services are: [X] 4. I certify this patient is homebound* because [the patient's condition restricts their ability to leave their home except with the assistance of another individual or the aid of a supportive device.] I certify that this patient is confined to his/her home and needs intermittent penitentiary care, physical and/or speech therapy. This patient is under my care and I have authorized home health services. * Homebound is defined by Medicare as follows: absences from home require considerable and tacking effort and or for medical reasons or adventism services or are infrequent or of short duration when for other reasons*.
--- NOTE | 2018-03-29 16:43 | PDHOMEO2F ---
Home Oxygen Face to Face Home Orders: I certify that a physician or a nurse practitioner or physician's marketing communications assistant has had a aemt-br-bgry encounter with this patient on the date of this order due to the diagnosis listed, which relates to the primary reason the patient requires home oxygen. Alternative treatments have been tried, or considered, and deemed ineffective. It is anticipated that supplemental oxygen will result in improvement with treatment. Yes Home oxygen qualifying diagnosis: Hypoxemia SpO2 on room air (%): 82% Frequency of home oxygen needed: continuous Home oxygen liters per minute: 2 Home oxygen delivery device: nasal cannula Concentrator: Yes E-tanks for mobility and back up: Yes If ordering portable O2, is the patient mobile in the home?: Yes I certify that, based on these findings, the home oxygen is medically necessary for this patient for the following length of time. Length of time home oxygen needed: 1 week
--- NOTE | 2018-03-29 16:56 | POSTANESTH ---
Post Anesthetic Evaluation Cardiovascular Status: Normal, Stable Respiratory Status: Normal, Stable Level of Consciousness/Mental Status: Can Participate in Eval Pain Control: Adequate, Prn Tx Ordered Nausea/Vomiting Control: Adequate, Prn Tx Ordered Complications Possibly Related to Anesthesia: None Noted (Seen prior to dc from PACU and doing well, without questions or concerns)
--- NOTE | 2018-04-03 05:41 | GDS ---
DISCHARGE DIAGNOSES: 1. Uterovaginal prolapse. 2. Stress urinary incontinence. PROCEDURES: 1. Robotic-assisted total laparoscopic hysterectomy, bilateral salpingo-oophorectomy. 2. Uterosacral ligament colpopexy. 3. Left ureterolysis. 4. Retropubic sling. 5. Cystoscopy. HISTORY: The patient is a 63-year-old woman with symptomatic uterovaginal prolapse. She was taken t o the operating room on 03/28/2018, where she underwent the above-mentioned procedures without compli cations. Her postoperative course was uneventful. The morning after surgery she was ambulating, voi ding, and tolerating a general diet. She was discharged home in good condition on postoperative day #1. Medications included Inyokern and ibuprofen for pain. She was to follow up in the office 2 weeks a fter discharge. /[id number]/MODL
== END 2018-03-29 20:55 | disposition home or self-care (01) ==
LOC: F3E 09:43 → FOB 15:06
PROVIDERS: ADMIT Obstetrics & Gynecology; ATTEND Obstetrics & Gynecology
PROC: 0TJ98ZZ Inspection of Ureter, Via Natural or Artificial Opening Endoscopic (ICD-10-PCS; principal; 2018-03-28 12:00)
PROC: 8E0W4CZ Robotic Assisted Procedure of Trunk Region, Percutaneous Endoscopic Approach (ICD-10-PCS; principal; 2018-03-28 12:00)
PROC: 0UT9FZZ Resection of Uterus, Via Natural or Artificial Opening With Percutaneous Endoscopic Assistance (ICD-10-PCS; principal; 2018-03-28 12:00)
PROC: 0UUG4JZ Supplement Vagina with Synthetic Substitute, Percutaneous Endoscopic Approach (ICD-10-PCS; principal; 2018-03-28 12:00)
PROC: 0UT7FZZ Resection of Bilateral Fallopian Tubes, Via Natural or Artificial Opening With Percutaneous Endoscopic Assistance (ICD-10-PCS; principal; 2018-03-28 12:00)
PROC: 0TUC0JZ Supplement Bladder Neck with Synthetic Substitute, Open Approach (ICD-10-PCS; principal; 2018-03-28 12:00)
DX: N81.3 Complete uterovaginal prolapse (principal); N39.3 Stress incontinence (female) (male); Z23 Encounter for immunization
CPT/HCPCS: 57288; 57425; 58571; 90471; G0378; C1771; G0009; J0690; J1100; J1170; J1885; J2001; J2250; J2370; J2405; J2704; J2780; J3010

== ENCOUNTER 2018-06-06 09:49 | Day surgery (SDC) | payer OTHER ==
--- NOTE | 2018-06-06 08:28 | PDGENHP ---
History and Physical History and Physical: Assessment and Plan: 1. Third degree uterine prolapse Le has third-degree uterine prolapse with a second-degree traction cystocele. She also has stress incontinence. We reviewed all conservative and surgical options. She does not want to try a different pessary. She wishes surgical intervention. This will be a robotic hysterectomy, uterosacral ligament colpopexy, and trans-obturator sling. A retropubic sling would be difficult secondary to the pannus. 2. Genuine stress incontinence, female Subjective: Patient ID: Le Harmon is a 62 y.o. female who presents to [facility] for prolapse. HPI She underwent a robotic assisted hysterectomy~without complication except that an attempted retropubic sling resulted in repeated cystotomy and was discontinued. She presents for a transboturator sling placement. Below is my prior history and physical. Le is a 62-year-old para 1 woman who presents to discuss uterine prolapse. This has become more symptomatic since last March. She has seen Odalis Maya and Jessica Meyer. Jessica fitted her with a pessary which she found uncomfortable. She feels a protrusion just at the vaginal opening. At times she has difficulty passing bowel movements but not urination. She leaks urine with coughing laughing and sneezing. She does have some urgency secondary to her diuretics. 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 Her history is significant for an umbilical hernia repaired with mesh by Fazal Holloway. She lives in [place]. PastMedicalHistory Past Medical History: Diagnosis Date Arthritis Hypertension Mental disorder Pulmonary disease Lungs are small PastSurgicalHistory Past Surgical History: Procedure Laterality Date HERNIA REPAIR 05/2017 KNEE SURGERY Left 06/2017 PREVIOUS SURGERIES WISDOM TOOTH EXTRACTION CURRENT MEDICATIONS: Current Outpatient Prescriptions Medication Sig acetaZOLAMIDE (DIAMOX) 500 mg 12 hr capsule TK 1 C PO ONCE A DAY aspirin 81 mg EC tablet Take 81 mg by mouth daily. ergocalciferol, vitamin D2, (VITAMIN D PO) haloperidol (HALDOL) 2 mg tablet TK 1 T PO QHS IBUPROFEN PO lamoTRIgine (LAMICTAL) 100 mg tablet TK 1 T PO BID losartan (COZAAR) 25 mg tablet TK 1 T PO D No current facility-administered medications for this visit. ALLERGIES: Bactrim [sulfamethoxazole-trimethoprim] I have reviewed, verified and agree with the past medical, surgical, , family, social and ROS history as documented by the RN today. Objective: Vital Signs: Visit Vitals BP 142/88 Pulse 85 Temp 37.4 C (99.3 F) (Temporal Artery) Resp 14 Ht 1.638 m (5' 4.5") Wt (!) 120.1 kg (264 lb 12.8 oz) SpO2 93% BMI 44.75 kg/m Physical Exam Gen: This is an alert, well developed woman in no distress. Neuro: She moves all extremities. Psych: She is appropriate, oriented, with normal affect. Neck: No thyroid enlargement, adenopathy, or tenderness. Lungs: Clear to ascultation, no wheezes or rales. Heart: Regular rate and rhythm without obvious murmurs. Abdomen: Soft, non-tender, without guarding, rebound, or masses. Obese. Extremities: No edema or cyanosis. Pelvic: Normal external genitalia. Non-gaping introitus, vagina without discharge. Cervix without lesions or discharge. Uterus normal sized, mobile, non -tender. Adnexa non-tender without enlargement. The uterus descends 2+1. There is a second-degree traction cystocele. The posterior wall is fairly well supported. DATA: I have reviewed the pertinent medical records. TIME/COMMUNICATION: I personally spent a total of 45 minutes. Of that 35 minutes was counseling/ coordination of patient's care. See my note above for details. Giorgio Aguilar MD Board Certified Female Pelvic Medicine and Reconstructive Surgery Director of Minimally Invasive Gynecologic Surgery, [facility] Surgeon in Minimally Invasive Gynecologic Surgery [facility] Surgeon in Robotic Surgery
[2018-06-06] MEDS ORDERED: LR 1,000 ML IV ONE (10:16)
[2018-06-06] MEDS ORDERED: ceFAZolin 2 GM/DEXTROSE 100 ML IV ONE (10:16)
[2018-06-06] MEDS ORDERED: LIDOCAINE 1% 2 ML INJ ID PRN (10:16)
--- NOTE | 2018-06-06 12:54 | PDHPUP ---
History & Physical Update H&P update statement: This history and physical update is based on an assessment of the patient which was completed after admission or registration (within 24 hours), but prior to the surgery/procedure. H&P update: H&P reviewed & patient examined, no change in patient's condition since H&P completed
[2018-06-06] MEDS ORDERED: BUPIVACAINE/EPI 0.5% 30 ML SDV ONE (13:27)
--- NOTE | 2018-06-06 15:11 | PDANEPAE ---
ANE History of Present Illness here for bladder sling ANE Past Medical History - Cardiovascular History Hx Hypertension: Yes Hx Arrhythmias: No Hx Chest Pain: No Hx Coronary Artery / Peripheral Vascular Disease: No Hx CHF / Valvular Disease: No Hx Palpitations: No Cardiovascular History Comment: pcp monitors. takes diamox every 2 days - Pulmonary History Hx COPD: No Hx Asthma/Reactive Airway Disease: No Hx Recent Upper Respiratory Infection: No Hx Oxygen in Use at Home: No Hx Sleep Apnea: No Sleep Apnea Screening Result - Last Documented: Positive Pulmonary History Comment: hadley triggers - Neurologic History Hx Cerebrovascular Accident: No Hx Seizures: No Hx Dementia: No - Endocrine History Hx Diabetes: No - Renal History Hx Renal Disorders: No - Liver History Hx Hepatic Disorders: No - Neurological & Psychiatric Hx Hx Neurological and Psychiatric Disorders: Yes Neurological / Psychiatric History Comment: bipolar - Cancer History Hx Cancer: No - Congenital Disorder History Hx Congenital Disorders: No - GI History Hx Gastrointestinal Disorders: No - Other Health History Other Health History: wears glasses - Chronic Pain History Chronic Pain: No - Surgical History Prior Surgeries: 03/28/18 BSO/MARIIA/Sling with Jeff. 07/13/17 left knee scope with Tal. 06/05/17 umb hernia repair with Jewel SHETTY Review of Systems Review of Systems: - Exercise capacity METS (RN): 3 METS ANE Patient History - Allergies Allergies/Adverse Reactions: sulfamethoxazole [From Bactrim] Allergy (Verified 06/01/18 12:31) Rash trimethoprim [From Bactrim] Allergy (Verified 06/01/18 12:31) Rash - Home Medications Home medications: home medication list seen and reviewed Home Medications: Haloperidol HS 01/03/15 [Last Taken 06/05/18 20:30] Fluticasone Nasal [Flonase Nasal [place]] PRN 06/05/17 [Last Taken 04/26/18] acetaZOLAMIDE [Diamox Sequel 500mg] Q2D 06/05/17 [Last Taken 06/05/18 09:00] lamOTRIGine [Lamotrigine] HS 06/05/17 [Last Taken 06/05/18 20:30] Aspirin EC [Aspirin EC 81 mg (*)] 03/05/18 [Last Taken 05/30/18] Cholecalciferol Vit D3 [Vitamin D3 (*)] 03/05/18 [Last Taken 03/21/18] Ibuprofen [Motrin (*)] PRN 03/05/18 [Last Taken 05/30/18] Loratadine 03/05/18 [Last Taken 04/26/18] Losartan Potassium [Cozaar 25 mg (*)] HS 03/05/18 [Last Taken 06/04/18] - NPO status NPO Status: no food or drink >8 hours NPO Since - Liquids (Date): 06/05/18 NPO Since - Liquids (Time): 20:00 NPO Since - Solids (Date): 06/05/18 NPO Since - Solids (Time): 20:00 - Anes Hx Anes Hx: no prior problems - Smoking Hx Smoking Status: Former smoker - Alcohol Use Alcohol Use: None - Family Anes Hx Family Anes Hx: none Family Hx Anesthesia Complications: none ANE Labs/Vital Signs - Vital Signs Blood Pressure: 175/79 Heart Rate: 85 Respiratory Rate: 16 O2 Sat (%): 92 Height: 167.64 cm Weight: 120.202 kg ANE Physical Exam - Airway Neck exam: FROM Mallampati Score: Class 3 Mouth exam: normal dental/mouth exam - Pulmonary Pulmonary: no respiratory distress, clear to auscultation - Cardiovascular Cardiovascular: regular rate and rhythym, no murmur, rub, or gallop - ASA Status ASA Status: III ANE Anesthesia Plan Anesthesia Plan: GA w LMA
[2018-06-06] MEDS ORDERED: MIDAZOLAM 2 MG/2 ML VIAL IVP ONE (15:12)
[2018-06-06] MEDS ORDERED: PROPOFOL 200 MG/20 ML VIAL ONE ×2 (15:17→15:40)
[2018-06-06] MEDS ORDERED: fentaNYL 100 MCG/2 ML INJ ONE (15:17)
[2018-06-06] MEDS ORDERED: ONDANSETRON 4 MG/2 ML VIAL ONE (15:19)
[2018-06-06] MEDS ORDERED: LIDOCAINE 2% 100 MG/5 ML SYR ONE (15:19)
[2018-06-06] MEDS ORDERED: DEXAMETHASONE 4 MG/ML VIAL ONE (15:19)
[2018-06-06] MEDS ORDERED: KETOROLAC 30 MG/1 ML SDV ONE (15:19)
--- NOTE | 2018-06-06 16:18 | POSTOPPROG ---
Post Op Note Date of Operation: 06/06/18 Surgeon: Giorgio Aguilar Home Attendant: None Anesthesiologist: Tatiana Anesthesia: GET(General Endotracheal), LMA Pre-op Diagnosis: Stress incntinence Post-op Diagnosis: [place] Procedure: TOT sling, cysto Findings: no urethral or bladder injury Inf/Abcess present in the surg proc area at time of surgery?: No EBL: Minimal Complications: none
[2018-06-06] MEDS ORDERED: fentaNYL 100 MCG/2 ML INJ IVP PRN (16:26)
[2018-06-06] MEDS ORDERED: NALOXONE HCL 0.4 MG/ML INJ IVP PRN (16:26)
[2018-06-06] MEDS ORDERED: ONDANSETRON 4 MG/2 ML VIAL IVP PRN (16:26)
[2018-06-06] MEDS ORDERED: HYDROmorphONE/DILAUDID 2 MG/ML INJ IVP PRN (16:26)
[2018-06-06] MEDS ORDERED: HYDROCODONE/APAP 5/325 TAB PO PRN (16:26)
[2018-06-06] MEDS ORDERED: ACETAMINOPHEN 500 MG TAB PO PRN (16:26)
[2018-06-06] MEDS ORDERED: oxyCODONE IR 5 MG TAB PO PRN (16:26)
[2018-06-06] MEDS ORDERED: PROMETHAZINE HCL 25 MG/ML INJ IVP PRN (16:26)
--- NOTE | 2018-06-06 16:29 | POSTANESTH ---
Post Anesthetic Evaluation Cardiovascular Status: Normal, Stable, Similar to Pre-Op Cond Respiratory Status: Normal, Stable, Similar to Pre-op Cond. Level of Consciousness/Mental Status: Can Participate in Eval, Alert and Oriented Pain Control: Adequate, Prn Tx Ordered Nausea/Vomiting Control: Adequate, Prn Tx Ordered Complications Possibly Related to Anesthesia: None Noted
[2018-06-06 17:12] VITALS: BP 158/84
--- NOTE | 2018-06-06 18:19 | GOP ---
DATE OF OPERATION: 06/06/2018 SURGEON: Giorgio Aguilar MD AIRLINE LOUNGE RECEPTIONIST: None. ANESTHESIA: General. PREOPERATIVE DIAGNOSIS: Stress urinary incontinence. POSTOPERATIVE DIAGNOSIS: Stress urinary incontinence. PROCEDURE PERFORMED: 1. Transobturator sling. 2. Cystoscopy. FINDINGS: SPECIMENS: None. ESTIMATED BLOOD LOSS: Scant. DESCRIPTION OF PROCEDURE: The patient was taken to the operating room where she was identified. Gen eral anesthesia was administered and found to be adequate. She was placed in the lithotomy position and prepared and draped in normal sterile fashion. A Monroe catheter was placed in her bladder. A mid urethral incision was made with a scalpel. Tunnels were created bilaterally out toward the obt urator internus muscles. Skin incisions were made over the obturator notches. The curved trocar was placed through the left skin incision, redirected around the ischial pubic rami, and out through the vaginal incision using a vaginal finger as a guide. The lateral sulci were examined and no evidence of vaginal injury had occurred. The sling was then attached and brought out along the same course. The exact procedure was performed on the patient's right side. Cystoscopy was then performed. Both ureters had vigorous jets of urine. There was no evidence of bl adder, nor urethral injury seen. No mesh was seen within the bladder, nor urethra. The sling was th en adjusted to allow a small mid urethral gap. The vaginal skin was closed with 2-0 Vicryl. The ski n with 4-0 Monocryl. Anesthesia was reversed, and the patient taken to PACU awake in stable conditio n. COMPLICATIONS: None. DISPOSITION: Patient stable to PACU. /[id number]/MODL
== END 2018-06-06 17:17 | disposition home or self-care (01) ==
LOC: FSGY 09:49
PROVIDERS: ATTEND Obstetrics & Gynecology
DX: N81.3 Complete uterovaginal prolapse (principal); N39.3 Stress incontinence (female) (male); I10 Essential (primary) hypertension; M19.90 Unspecified osteoarthritis, unspecified site
CPT/HCPCS: C1771; J0690; J1100; J1885; J2001; J2250; J2405; J2704; J3010

== ENCOUNTER → 2018-07-18 | Outpatient (CLI) | payer OTHER | LOC: FIMAGING 16:51 ==

== ENCOUNTER 2018-08-02 11:48 | Observation (INO) | payer OTHER ==
--- NOTE | 2018-08-02 12:16 | EDPHY ---
H & P Time Seen by Provider: 08/02/18 12:04 HPI/ROS: CHIEF COMPLAINT: Not thinking clearly HISTORY OF PRESENT ILLNESS: The patient is a 63-year-old female who comes to the emergency department stating that she has not been thinking clearly for the last 5 days. She is wanting to have her electrolytes checked. She states that she has also had intermittent cramping in her legs. She has been eating and drinking normally. No vomiting or diarrhea. No fevers. No infectious symptoms. She states that she has also had shortness of breath since her surgery in March. She has seen her clinic scheduler who has obtained and normal x-ray and pulmonary function tests. She has an echocardiogram scheduled next week. She denies chest pain but states that she has had some chest "fullness" for the last 3-4 days. No leg pain or swelling. She states that her primary concern today was that she feels like she is mentally slow. She is however able to answer all questions appropriately and easily. Severity: Mild Modifying factors: None REVIEW OF SYSTEMS: Constitutional: denies: chills, fever, recent illness, recent injury EENTM: denies: blurred vision, double vision, nose congestion Respiratory: denies: cough, shortness of breath Cardiac: denies: chest pain, irregular heart rate, lightheadedness, palpitations Gastrointestinal/Abdominal: denies: abdominal pain, diarrhea, nausea, vomiting, blood streaked stools Genitourinary: denies: dysuria, frequency, hematuria, pain Musculoskeletal: denies: joint pain, muscle pain Skin: denies: lesions, rash, jaundice, bruising Neurological: See HPI denies: headache, numbness, paresthesia, tingling, dizziness, weakness Hematologic/Lymphatic: denies: blood clots, easy bleeding, easy bruising Immunologic/allergic: denies: HIV/AIDS, transplant 10 systems reviewed and negative except as noted EXAM: GENERAL: Well-appearing, well-nourished and in no acute distress. HEAD: Atraumatic, normocephalic. EYES: Pupils equal round and reactive to light, extraocular movements intact, sclera anicteric, conjunctiva are normal. ENT: TMs normal, nares patent, oropharynx clear without exudates. Moist mucous membranes. NECK: Normal range of motion, supple without lymphadenopathy or JVD. LUNGS: Breath sounds clear to auscultation bilaterally and equal. No wheezes rales or rhonchi. HEART: Regular rate and rhythm without murmurs, rubs or gallops. ABDOMEN: Soft, nontender, normoactive bowel sounds. No guarding, no rebound. No masses appreciated. BACK: No CVA tenderness, no spinal tenderness, step-offs or deformities EXTREMITIES: Normal range of motion, no pitting or edema. No clubbing or cyanosis. NEUROLOGICAL: Cranial nerves II through XII grossly intact. Normal speech, normal gait. 5/5 strength, normal movement in all extremities, normal sensation , normal reflexes PSYCH: Normal mood, normal affect. SKIN: Warm, dry, normal turgor, no visible rashes or lesions. Source: Patient Exam Limitations: No limitations - Personal History Tetanus Vaccine Date: < 10 YEARS - Medical/Surgical History Hx Asthma: Yes Hx Chronic Respiratory Disease: Yes Hx Diabetes: No Hx Cardiac Disease: No Hx Renal Disease: No Hx Cirrhosis: No Hx Alcoholism: No Hx HIV/AIDS: No Hx Splenectomy or Spleen Trauma: No Other PMH: Umbilical hernia repair. Hysterectomy. Reactive airway disease. Hypertension - Family History Significant Family History: No pertinent family hx - Social History Smoking Status: Former smoker Alcohol Use: None Constitutional: Initial Vital Signs Temperature (C) 36.7 C 08/02/18 12:06 Heart Rate 83 08/02/18 12:06 Respiratory Rate 14 08/02/18 12:06 Blood Pressure 171/73 H 08/02/18 12:06 O2 Sat (%) 93 08/02/18 12:06 O2 Delivery Mode Room Air Allergies/Adverse Reactions: sulfamethoxazole [From Bactrim] Allergy (Verified 08/02/18 12:03) Rash trimethoprim [From Bactrim] Allergy (Verified 08/02/18 12:03) Rash Home Medications: Medication Instructions Recorded Fluticasone Nasal [Flonase Nasal 2 sprays EACHNARE DAILY PRN 06/05/17 [place]] Loratadine 10 mg PO DAILY PRN 03/05/18 Losartan Potassium [Cozaar 25 mg 25 mg PO HS 03/05/18 (*)] ARIPiprazole [Abilify 2 mg (*)] 2 mg PO HS 08/02/18 Furosemide [Lasix 40 MG (*)] 40 mg PO Q2D 08/02/18 Ibuprofen [Motrin (*)] 600 mg PO DAILY PRN 08/02/18 Multivitamins [Multivitamin (*)] 1 each PO DAILY 08/02/18 lamoTRIgine [LamICTAL 100 MG (*)] 200 mg PO HS 08/02/18 Medical Decision Making - Diagnostics EKG Interpretation: An EKG obtained and was read and documented in trace view. Please see trace view for full reading and report. Sinus rhythm, left bundle branch block new compared to 3 weeks ago Imaging: Discussed imaging studies w/ call worker Radiologist ED Course/Re-evaluation: 1:15 p.m. the patient has a new left bundle branch block and worsening chest x- ray. She is also hypertensive. She however states that she feels better over the last couple of days since starting Lasix and she is not hypoxic here. She tells me now that her clinic scheduler called in a prescription of Lasix for her after her previous x-ray. I called Dr. Vega who recommends admission. The patient understands and agrees. Have paged the hospitalist service. 1:30 p.m. discussed with hospitalist service who will admit. Differential Diagnosis: Partial list of the Differential diagnosis considered include but were not limited to; CHF, electrolyte abnormality, anxiety and although unlikely based on the history and physical exam, I also considered infection, myocardial infarction. - Data Points Medications Given: Aripiprazole (Abilify) 2 mg PO [facility] Stop: 01/29/19 20:59 Last Admin: 08/02/18 21:17 Dose: 2 mg Lamotrigine (Lamictal) 200 mg PO [facility] Stop: 01/29/19 20:59 Last Admin: 08/02/18 21:09 Dose: 200 mg Losartan Potassium (Cozaar) 25 mg PO [facility] Stop: 01/29/19 20:59 Last Admin: 08/02/18 21:09 Dose: 25 mg Morphine Sulfate (Morphine) 1 - 2 mg IVP Q3HRS PRN PRN Reason: Pain, Severe Unable to Take PO Stop: 08/12/18 15:00 Last Admin: 08/03/18 13:52 Dose: 1 mg Multivitamins (Tab-A-Garett) 1 each PO DAILY [facility] Stop: 01/30/19 08:59 Last Admin: 08/03/18 10:38 Dose: Not Given Nitroglycerin (Nitrostat) 0.4 mg SL Q5M PRN PRN Reason: Chest Pain Last Admin: 08/02/18 13:51 Dose: 0.4 mg Discontinued Medications Aspirin Buffered (Aspirin Ec) 325 mg PO ONCALL ONE Stop: 08/03/18 11:33 Last Admin: 08/03/18 12:02 Dose: 325 mg Diazepam (Valium) 5 mg PO ONCALL ONE Stop: 08/03/18 11:33 Last Admin: 08/03/18 12:02 Dose: 5 mg Diphenhydramine HCl (Benadryl) 25 mg PO ONCALL ONE Stop: 08/03/18 11:33 Last Admin: 08/03/18 12:02 Dose: 25 mg Famotidine (Pepcid) 20 mg PO ONCALL ONE Stop: 08/03/18 11:33 Last Admin: 08/03/18 12:02 Dose: 20 mg Furosemide (Lasix Injection) 40 mg IVP EDNOW ONE Stop: 08/02/18 13:24 Last Admin: 08/02/18 13:55 Dose: 40 mg Sodium Chloride (Ns) 1,000 mls @ 0 mls/hr IV ONCALL ONE PRN Reason: TKO Stop: 08/03/18 11:33 Last Admin: 08/03/18 12:03 Dose: 1,000 mls Losartan Potassium (Cozaar) 25 mg PO ONCE ONE Stop: 08/03/18 10:53 Last Admin: 08/03/18 11:08 Dose: 25 mg Nitroglycerin (Nitro-Bid 2%) 1 inch TP ONCE ONE Stop: 08/02/18 14:12 Last Admin: 08/02/18 14:30 Dose: 1 inch Point of Care Test Results: CBC CBC Collection Date 08/02/18 CBC Collection Time 12:40 WBC 8.97 RBC 5.55 HGB 15.1 HCT 46.6 PLT 230 Neut # 6.57 Neut 73.3 LYMPH # 1.73 LYMPH 19.3 MCV 84.0 Chemistry 08/02/18 08/02/18 12:49 12:47 POC Sodium 142 mEq/L mEq/L (135-145) POC Potassium 4.0 mEq/L mEq/L (3.3-5.0) POC Chloride 103.0 mEq/L mEq/L (97-110) POC Total CO2 27 mEq/L mEq/L (22-31) POC BUN 15 mg/dL mg/dL (7-23) POC Creatinine 0.8 mg/dL mg/dL (0.6-1.0) POC Glucose 85 mg/dL mg/dL (70-100) POC Calcium 9.7 mg/dL mg/dL (8.5-10.4) POC Troponin I 0.00 ng/mL ng/mL (0.00-0.08) D-Dimer D-Dimer Collection Date 08/02/18 D-Dimer Collection Time 12:40 D-Dimer (ng/ml) 238 Departure - Departure Disposition: [facility] Inpatient Acute Clinical Impression: Congestive heart failure Qualifiers: Heart failure type: unspecified Heart failure chronicity: acute Qualified Code( s): I50.9 - Heart failure, unspecified Condition: Fair
--- NOTE | 2018-08-02 12:28 | CPEKG ---
Test Reason : OPEN Blood Pressure : / mmHG Vent. Rate : 077 BPM Atrial Rate : 077 BPM P-R Int : 204 ms QRS Dur : 152 ms QT Int : 441 ms P-R-T Axes : 065 -37 092 degrees QTc Int : 500 ms Sinus rhythm Probable left atrial enlargement Left bundle branch block Confirmed by Stephany Ramos ([id number]) on 08/02/2018 12:28:05 PM Referred By: STEPHANY RAMOS Confirmed By:Stephany Ramos
[2018-08-02] MEDS ORDERED: NITROGLYCERIN 0.4 MG BTL SL PRN (13:13)
[2018-08-02] MEDS ORDERED: FUROSEMIDE 40 MG/4 ML VIAL IVP ONE (13:23)
[2018-08-02] MEDS ORDERED: NITROGLYCERIN 2% 1 GM PACKET TP ONE (14:11)
[2018-08-02] MEDS ORDERED: NITROGLYCERIN 2% 1 GM PACKET ONE (14:15)
[2018-08-02] MEDS ORDERED: ONDANSETRON DISINTEGRATING 4 MG TAB PO PRN (15:01)
[2018-08-02] MEDS ORDERED: ONDANSETRON 4 MG/2 ML VIAL IVP PRN (15:01)
[2018-08-02] MEDS ORDERED: ACETAMINOPHEN 325 MG TAB PO PRN (15:01)
--- NOTE | 2018-08-02 17:09 | PDGENHP ---
History and Physical - Chief Complaint confusion, sob - History of Present Illness The pt is a 63 yo female who presented to the ER with confusion. This has cleared. She was found to have a new LBBB and SOB. Denies CP, palpitations. Does have some leg swelling bilateral which are new. CXR did not show any significant fluid. She was given Lasix. Cardiology was consulted by the ER. No vomiting or diarrhea. No fevers. No infectious symptoms. She states that she has also had shortness of breath since her surgery in March. She has seen her boring machine set up operator who has obtained and normal x-ray and pulmonary function tests. She has an echocardiogram scheduled next week. PMH: Umbilical hernia repair. Hysterectomy. Reactive airway disease. Hypertension - Family History Significant Family History: No pertinent family hx - Social History Smoking Status: Former smoker Alcohol Use: None History Information - Allergies/Home Medication List Allergies/Adverse Reactions: sulfamethoxazole [From Bactrim] Allergy (Verified 08/02/18 12:03) Rash trimethoprim [From Bactrim] Allergy (Verified 08/02/18 12:03) Rash Home Medications: Fluticasone Nasal [Flonase Nasal [place]] 2 sprays EACHNARE DAILY PRN 06/05/17 [ Last Taken 04/26/18] Loratadine 10 mg PO DAILY PRN 03/05/18 [Last Taken 04/26/18] Losartan Potassium [Cozaar 25 mg (*)] 25 mg PO HS 03/05/18 [Last Taken 06/04/18] ARIPiprazole [Abilify 2 mg (*)] 2 mg PO HS 08/02/18 [Last Taken Unknown] Furosemide [Lasix 40 MG (*)] 40 mg PO Q2D 08/02/18 [Last Taken 08/01/18] Ibuprofen [Motrin (*)] 600 mg PO DAILY PRN 08/02/18 [Last Taken 07/31/18] Multivitamins [Multivitamin (*)] 1 each PO DAILY 08/02/18 [Last Taken 07/31/18] lamoTRIgine [LamICTAL 100 MG (*)] 200 mg PO HS 08/02/18 [Last Taken Unknown] I have personally reviewed and updated: medical history, social history - Social History Smoking Status: Former smoker Alcohol Use: None Review of Systems Review of Systems: ROS: 10pt was reviewed & negative except for what was stated in HPI & below Physical Exam Physical Exam: Temp Pulse Resp BP Pulse Ox 37.1 C 98 13 175/96 H 91 L 08/02/18 15:57 08/02/18 15:57 08/02/18 15:57 08/02/18 15:57 08/02/18 15:57 Constitutional: no apparent distress Eyes: PERRL Ears, Nose, Mouth, Throat: moist mucous membranes, hearing normal Cardiovascular: regular rate and rhythym, edema (bilateral pedal edema, trace) Respiratory: reduced air movement Gastrointestinal: normoactive bowel sounds Skin: warm Neurologic: AAOx3 Psychiatric: interacting appropriately, not anxious, not encephalopathic Lymph, Heme, Immunologic: No petechiae Lab Data & Imaging Review POC Sodium 142 mEq/L (135-145) 08/02/18 12:49 POC Potassium 4.0 mEq/L (3.3-5.0) 08/02/18 12:49 POC Chloride 103.0 mEq/L (97-110) 08/02/18 12:49 POC Total CO2 27 mEq/L (22-31) 08/02/18 12:49 POC BUN 15 mg/dL (7-23) 08/02/18 12:49 POC Creatinine 0.8 mg/dL (0.6-1.0) 08/02/18 12:49 POC Glucose 85 mg/dL (70-100) 08/02/18 12:49 POC Calcium 9.7 mg/dL (8.5-10.4) 08/02/18 12:49 Magnesium 2.1 mg/dL (1.6-2.3) 08/02/18 16:35 POC Troponin I 0.00 ng/mL (0.00-0.08) 08/02/18 12:47 NT-Pro-B Natriuret Pep 59 pg/mL (0-125) 08/02/18 16:35 Assessment & Plan Assessment: #New LBBB #SOB #Pedal Edema #HTN #Leg cramping #Confusion, resolved Unclear what the etiology of the new LBBB is. Troponin is negative. She does not have any cp. Cards was consulted in the ER. Will obtain trops, check TTE, tele. Await further recss She was given Lasix in the ER. BNP is negative. I dont see significant volume overload. Will hold additional diuretics pending TTE, clinical course. She is on RA The SOB since surgery and leg swelling is concerning. Will order a D-Dimer as well as LEG dopplers. May need CTA chest pending results Full Code, confirmed at bedside
[2018-08-02] MEDS ORDERED: FLUTICASONE NASAL 120 SPRAYS/16 GM MDI EACHNARE PRN (17:22)
[2018-08-02] MEDS ORDERED: CETIRIZINE 10 MG TAB PO PRN (17:22)
[2018-08-02] MEDS ORDERED: IOHEXOL 350mgI/ML (OMNIPAQUE) 150 ML BTL IV ONE (18:15)
[2018-08-02] MEDS ORDERED: LOSARTAN POTASSIUM 25 MG TAB PO SCH (21:00)
[2018-08-02] MEDS ORDERED: ARIPiprazole 2 MG TAB PO SCH (21:00)
[2018-08-02] MEDS ORDERED: lamoTRIgine 100 MG TAB PO SCH (21:00)
[2018-08-03] MEDS ORDERED: MULTIVITAMINS 1 EACH TAB PO SCH (09:00)
[2018-08-03 09:43] LABS: PLATELET COUNT 223 10^3/uL (150-400)
--- NOTE | 2018-08-03 10:48 | PDCARCONS ---
Cardiology Consult Reason for Consult: Newly noted LBBB pattern on ECG Chief Complaint: Confusion Requesting Physician: Hospitalist team History of Present Illness: Patient is a 63 y/o female with history of HTN, but no history of HLP, CAD, or DM, who presented to ER at [facility] yesterday with complaints of "not thinking clearly". Patient with some concerns about electrolyte abnormalities (this was voiced to the [facility] ER attending). No cardiovascular complaints of chest pains or pressure. No PND or orthopnea. No fevers or chills. Mild, progressive shortness of breath has been noted. 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 Patient had been been by pulmonary with her complaints of dyspnea, without gross pathology noted. In the ER and to the admitting physician, the patient is concerned about her "mental slowness". ECG in the ER with a "new" LBBB pattern - something that she has never heard before to describe her ECG. In the remote past, the patient had a stress test (nuclear) without pathology noted. Today, the patient is without "new" symptoms and remainder of the 12 point review of systems was unremarkable History Information - Allergies/Home Medication List Allergies/Adverse Reactions: sulfamethoxazole [From Bactrim] Allergy (Verified 08/02/18 12:03) Rash trimethoprim [From Bactrim] Allergy (Verified 08/02/18 12:03) Rash Home Medications: Fluticasone Nasal [Flonase Nasal Center Sandwich] 2 sprays EACHNARE DAILY PRN 06/05/17 [ Last Taken 04/26/18] Loratadine 10 mg PO DAILY PRN 03/05/18 [Last Taken 04/26/18] Losartan Potassium [Cozaar 25 mg (*)] 25 mg PO HS 03/05/18 [Last Taken 06/04/18] ARIPiprazole [Abilify 2 mg (*)] 2 mg PO HS 08/02/18 [Last Taken Unknown] Furosemide [Lasix 40 MG (*)] 40 mg PO Q2D 08/02/18 [Last Taken 08/01/18] Ibuprofen [Motrin (*)] 600 mg PO DAILY PRN 08/02/18 [Last Taken 07/31/18] Multivitamins [Multivitamin (*)] 1 each PO DAILY 08/02/18 [Last Taken 07/31/18] lamoTRIgine [LamICTAL 100 MG (*)] 200 mg PO HS 08/02/18 [Last Taken Unknown] I have personally reviewed and updated: family history, medical history, social history, surgical history Past Medical History: - Past Medical History hypertension - Surgical History Reports: hysterectomy Additional surgical history: bladder sling - Family History Positive for: non-pertinent - Social History Smoking Status: Former smoker Alcohol Use: None Drug Use: None Cardiac History - Cardiac History Cardiac Risk Factors: hypertension (>140/90) Timing/Duration: Weeks Severity: moderate Severity Scale: 4 Location: substernal Activities at Onset: activity Modifying Factors: improves with: exercise, rest Associated Symptoms: shortness of breath, other (confusion) BETHANY Risk Evaluation age greater or equal to 65: no greater or equal to 3 CAD risk factors: no known CAD(stenosis greater or eqaul to 50%): no ASA use in past 7 days: no severe angina(greater or equal to 2 episodes in 24hrs): no EKG ST changes greater or equal to 0.5mm: no positive cardiac marker: no Total Score: 0 BETHANY Score: 4.7% risk Physical Exam Physical Exam: Temp Pulse Resp BP Pulse Ox 36.6 C 90 20 167/96 H 95 08/03/18 03:36 08/03/18 07:33 08/03/18 07:33 08/03/18 07:33 08/03/18 07:33 O2 (L/minute) 1 Constitutional: no apparent distress, appears nourished, not in pain, obese Eyes: PERRL, EOMI Ears, Nose, Mouth, Throat: moist mucous membranes Cardiovascular: regular rate and rhythym, no murmur, rub, or gallop, pulses symmetric bilaterally, No JVD Peripheral Pulses: 2+: dorsalis-pedis (R), dorsalis-pedis (L) Respiratory: no respiratory distress, clear to auscultation Gastrointestinal: normoactive bowel sounds Skin: warm Musculoskeletal: no muscle tenderness, normal joint ROM Neurologic: AAOx3, sensation intact bilaterally, CN II-XII Intact Psychiatric: interacting appropriately, not anxious, not encephalopathic Lab and Imaging 08/03/18 03:00 08/03/18 03:00 WBC 7.87 10^3/uL (3.80-9.50) 08/03/18 03:00 RBC 5.52 10^6/uL (4.18-5.33) H 08/03/18 03:00 Hgb 14.6 g/dL (12.6-16.3) 08/03/18 03:00 Hct 47.0 % (38.0-47.0) 08/03/18 03:00 MCV 85.1 fL (81.5-99.8) 08/03/18 03:00 MCH 26.4 pg (27.9-34.1) L 08/03/18 03:00 MCHC 31.1 g/dL (32.4-36.7) L 08/03/18 03:00 RDW 15.8 % (11.5-15.2) H 08/03/18 03:00 Plt Count 223 10^3/uL (150-400) 08/03/18 03:00 MPV 10.4 fL (8.7-11.7) 08/03/18 03:00 Neut % (Auto) 66.0 % (39.3-74.2) 08/03/18 03:00 Lymph % (Auto) 23.8 % (15.0-45.0) 08/03/18 03:00 Webster % (Auto) 7.6 % (4.5-13.0) 08/03/18 03:00 Eos % (Auto) 1.7 % (0.6-7.6) 08/03/18 03:00 Baso % (Auto) 0.6 % (0.3-1.7) 08/03/18 03:00 Nucleat RBC Rel Count 0.0 % (0.0-0.2) 08/03/18 03:00 Absolute Neuts (auto) 5.20 10^3/uL (1.70-6.50) 08/03/18 03:00 Absolute Lymphs (auto) 1.87 10^3/uL (1.00-3.00) 08/03/18 03:00 Absolute Monos (auto) 0.60 10^3/uL (0.30-0.80) 08/03/18 03:00 Absolute Eos (auto) 0.13 10^3/uL (0.03-0.40) 08/03/18 03:00 Absolute Basos (auto) 0.05 10^3/uL (0.02-0.10) 08/03/18 03:00 Absolute Nucleated RBC 0.00 10^3/uL (0-0.01) 08/03/18 03:00 Immature Gran % 0.3 % (0.0-1.1) 08/03/18 03:00 Immature Gran # 0.02 10^3/uL (0.00-0.10) 08/03/18 03:00 D-Dimer 0.56 ug/mLFEU (0.00-0.50) H 08/02/18 16:35 POC Sodium 142 mEq/L (135-145) 08/02/18 12:49 Sodium 139 mEq/L (135-145) 08/03/18 03:00 POC Potassium 4.0 mEq/L (3.3-5.0) 08/02/18 12:49 Potassium 3.9 mEq/L (3.5-5.2) 08/03/18 03:00 POC Chloride 103.0 mEq/L (97-110) 08/02/18 12:49 Chloride 104 mEq/L (97-110) 08/03/18 03:00 Carbon Dioxide 29 mEq/l (22-31) 08/03/18 03:00 POC Total CO2 27 mEq/L (22-31) 08/02/18 12:49 Anion Gap 6 mEq/L (6-14) 08/03/18 03:00 POC BUN 15 mg/dL (7-23) 08/02/18 12:49 BUN 19 mg/dL (7-23) 08/03/18 03:00 Creatinine 0.7 mg/dL (0.6-1.0) 08/03/18 03:00 POC Creatinine 0.8 mg/dL (0.6-1.0) 08/02/18 12:49 Estimated GFR > 60 08/03/18 03:00 Glucose 86 mg/dL (70-100) 08/03/18 03:00 POC Glucose 85 mg/dL (70-100) 08/02/18 12:49 POC Calcium 9.7 mg/dL (8.5-10.4) 08/02/18 12:49 Calcium 9.1 mg/dL (8.5-10.4) 08/03/18 03:00 Magnesium 2.1 mg/dL (1.6-2.3) 08/02/18 16:35 POC Troponin I 0.00 ng/mL (0.00-0.08) 08/02/18 12:47 Troponin I < 0.012 ng/mL (0.000-0.034) 08/03/18 02:00 NT-Pro-B Natriuret Pep 59 pg/mL (0-125) 08/02/18 16:35 TSH 2.770 uIU/mL (0.465-4.680) 08/03/18 03:00 Free T4 1.29 ng/dL (0.59-2.19) 08/03/18 03:00 Visualized and Interpreted Chest x-ray results: Yes Chest X-ray Interpretation: no infiltrate, normal Visualized and Interpreted EKG results: Yes EKG Interpretation: Positive for: left bundle branch block, normal sinsus rhythm Telemetry: sinus rhythm A/P Assessment: Patient is a 63 y/o female with history of HTN (on medical therapy) with complaints of dyspnea that has progressed since March. Pulmonary follow up without gross pathology noted (per patient reports). ECG at [facility] [place] with "new" LBBB pattern noted. No complaints of chest pains. Fatigue and malaise have accompanied the patient's dyspnea. Cardiac biomarkers all within normal limited. CT rule out PE (given elevation to the d-dimer) without PE noted. There is some lymphadenopathy noted, and scarring (noted on prior studies, but with some degree of progression noted). No mention of "CAD" on the CT read. Plan: (1) Recommendations for patient to maintain therapy on ARB for HTN history (2) With "new" LBBB pattern in patient with some CV risks, would recommend [facility] for better risk stratification (over MPI testing or ETT) (3) Would ensure follow up with PCP given the findings noted on the CT scan pertaining to lymphadenopathy (4) Further recommendations after testing has been completd.
[2018-08-03] MEDS ORDERED: LOSARTAN POTASSIUM 25 MG TAB PO ONE (10:52)
[2018-08-03] MEDS ORDERED: NS 1,000 ML IV ONE (11:32)
[2018-08-03] MEDS ORDERED: diphenhydrAMINE 25 MG CAP PO ONE (11:32)
[2018-08-03] MEDS ORDERED: fentaNYL 100 MCG/2 ML INJ ONE (11:32)
[2018-08-03] MEDS ORDERED: FAMOTIDINE 20 MG TAB PO ONE (11:32)
[2018-08-03] MEDS ORDERED: DIAZEPAM 5 MG TAB PO ONE (11:32)
[2018-08-03] MEDS ORDERED: LIDOCAINE 1% 300 MG/30 ML SDV ONE (11:32)
[2018-08-03] MEDS ORDERED: ASPIRIN EC 325 MG TAB PO ONE (11:32)
[2018-08-03] MEDS ORDERED: IOHEXOL 350mgI/ML (OMNIPAQUE) 150 ML BTL IV ONE (11:33)
[2018-08-03] MEDS ORDERED: MIDAZOLAM 2 MG/2 ML VIAL ONE (11:33)
[2018-08-03 12:09] LABS: INR 1.02 (0.83-1.16); PROTIME(PATIENT) 13.6 SEC (12.0-15.0)
--- NOTE | 2018-08-03 12:51 | PDPROPOC ---
Sedation Plan of Care Sedation Plan of Care: vital signs stable, mental status noted, patient educated of risks, benefits, alternatives, patient can tolerate sedation ASA Classification: ASA 3 Planned drugs: fentanyl, midazolam Mallampati Score: Class 3 Mallampati Reference Image: Patient passed 3-3-2 rule?: Yes
--- NOTE | 2018-08-03 13:31 | HOSPPROG ---
Hospitalist Progress Note Assessment/Plan: #New LBBB #SOB #Pedal Edema #HTN #Leg cramping #Confusion, resolved #Thyroid Nodularity #R Axillary CARYL Unclear what the etiology of the new LBBB is. Troponins negative x3 overnight. Cards consulted who will perform LHC today. TTE ordered, tele. Await further recs after LHC She was given Lasix in the ER. BNP is negative. I dont see significant volume overload. Will hold additional diuretics pending TTE, clinical course. She is on RA The SOB since surgery and leg swelling is concerning. CTA chest performed on admission which was negative for PE, however did show thyroid nodularity and R axillary CARYL. TFTs ordered as IP. Patient to followup for Thyroid U/S as well as Mammography as outpatient to f/u abnormal CT results. Full Code Subjective: Patient reports no chest pain this AM Objective: Vital Signs Temp Pulse Resp BP Pulse Ox 36.6 C 80 20 173/92 H 95 08/03/18 03:36 08/03/18 10:44 08/03/18 07:33 08/03/18 10:44 08/03/18 07:33 Laboratory Results 08/03/18 03:00 08/03/18 03:00 08/02/18 08/03/18 08/04/18 05:59 05:59 05:59 Intake Total 600 Output Total 1100 Balance -500 PT 13.6 SEC (12.0-15.0) 08/03/18 11:50 INR 1.02 (0.83-1.16) 08/03/18 11:50 - Physical Exam Constitutional: no apparent distress Eyes: PERRL Ears, Nose, Mouth, Throat: moist mucous membranes Cardiovascular: regular rate and rhythym Respiratory: no respiratory distress Gastrointestinal: normoactive bowel sounds Skin: warm Musculoskeletal: full muscle strength Neurologic: AAOx3 Psychiatric: interacting appropriately ICD10 Worksheet Patient Problems: Problems Problem Status Onset Congestive heart failure Acute Abdominal wall cellulitis Acute Complete uterovaginal prolapse Acute Female genuine stress incontinence Acute Hypoxemia Acute Incarcerated hernia Acute
--- NOTE | 2018-08-03 13:31 | PDDXCAT ---
Diagnostic Cath Note - . Date: 08/03/18 Unload Associate: Galen Indication: other (new LBBB ) - Procedure Access: right groin Procedure: left heart catheterization, coronary angiography, left ventriculogram - Materials Left Heart Cath size: 6F Left Heart Cath materials: standard multipack (JL4, JR4, pigtail) - Findings-Left Heart Catheterization LM: Short LM with trifurcation into the LAD, Ramus, and LCX. No luminal irregularities were noted LAD: Medium diameter vessel with a principal diagonal. This diagonal branches. No luminal irregularities were noted. LCX: Relatively small diameter vessel without appreciable luminal irregularities noted. RCA: Large diameter vessel with supply to the PDA and GERA arteries. No luminal irregularities were noted. Ramus: Medium to large diameter vessel without appreciable luminal irregularities noted. EDP: 18 mm Hg LVEF: 70 Wall motion: normal wall motion Complications: none Estimated blood loss: <50ml Closure method: Angioseal Assessment: Patient is a 63 y/o female with history of confusion and shortness of breath. [place] with newly noted LBBB. Symptoms have been appreciated since surgery in March of last year. No critical CAD was noted. Normal left ventricular systolic ejection fraction was noted. Normal wall motion. Plan: Would maintain medical therapy as at present. Consider annual assessment of cholesterol and LFTs. Regular assessment of blood pressure. Weight loss with diet and regular exercise. Patient Problems: Problems Problem Status Onset Congestive heart failure Acute Abdominal wall cellulitis Acute Complete uterovaginal prolapse Acute Female genuine stress incontinence Acute Hypoxemia Acute Incarcerated hernia Acute
--- NOTE | 2018-08-03 13:46 | ECHO ---
[email or web address] [address] Main: [phone] Fax: Transthoracic Echocardiogram Name: ANDREW BAINS MR#: [id number] Study Date: 08/03/2018 Study Time: 08:08 AM Date of : 1955 Age: 63 year(s) Height: 167.6 cm (66 in.) Weight: 120.2 kg (265 lb.) BSA: 2.25 m2 Gender: Female Examination: Echo Indication: Shortness of breath, LBBB Image Quality: Contrast: Requested by: Best Shetty BP: 167 mmHg/99 mmHg Heart Rate: Rhythm: Tachycardia Indication: Shortness of breath, LBBB Procedure Staff Court Bailiff: Santhosh Mayo RDCS Reading Physician: Jeff Orlando MD Requesting Provider: Conclusions: No pericardial effusion. Concentric left ventricular hypertrophy with ejection fraction of 63%. Paradoxical septal motion. No significant outflow tract gradient. Mild mitral regurgitation. Measurements: Chambers Valvular Assessment AV/MV Valvular Assessment TV/PV Normal Normal Normal Name Value Range Name Value Range Name Value Range Ao Lyndsey (MM): 2.9 cm (2.2 cm-3.7 AV Vmax: 1.95 m/s (1 m/s-1.7 PV Vmax: 2.14 m/s (0.6 m/s-0.9 cm) m/s) m/s) IVSd (2D): 1.3 cm (0.6 cm-1.1 AV maxP mmHg ( - ) PV PGmax: 18 mmHg ( - ) cm) LVOT Vmax: 1.38 m/s (0.7 m/s-1.1 LVDd (2D): 4.9 cm (3.9 cm-5.3 m/s) cm) MV E Vmax: 0.52 m/s ( - ) LVDs (2D): 3.2 cm (2.1 cm-4 MV A Vmax: 1.18 m/s ( - ) cm) MV E/A: 0.44 ( - ) LVPWd (2D): 1.4 cm ( - ) LVEF (2D): 63 (>=54 %) Continued Measurements: Chambers Valvular Assessment AV/MV Name Value Name Value LADs Lon.5 cm MV E' Septal: 0.06 m/s LA Area: 21.1 cm2 MV E/E' Septal: 8.20 LA Volume: 36 ml MV E/E' Lateral: 10.60 LA Volume Index: 16.0 ml/m2 Findings: Left Ventricle: Patient: ANDREW BAINS Study Date: 08/03/2018 Page 1 of 2 08:08 AM Normal size left ventricle. Mild to moderate LVH. Mild FIDE is present. Normal global systolic LV function. EF is 63 %. There is paradoxic septal motion suggestive of bundle branch block, paced cardiac rhythm, or prior cardiac surgery. Right Ventricle: Normal size right ventricle. Normal RV function. Left Atrium: The left atrium is normal in size. Right Atrium: The right atrium is normal in size. Mitral Valve: The mitral valve is normal in appearance. Mild mitral valve regurgitation is present. Mild FIDE is present. Aortic Valve: The aortic valve is normal in appearance and function. There is no significant aortic valve regurgitation. No aortic valve stenosis is present. Tricuspid Valve: The tricuspid valve is normal in appearance and function. There is no significant tricuspid valve regurgitation. Pulmonic Valve: The pulmonic valve is normal in appearance and function. There is no pulmonic regurgitation seen. Aorta: The aorta is normal. Pericardium: No pericardial effusion. There is pericardial fat. (No Signature Object) Patient: ANDREW BAINS Study Date: 08/03/2018 Page 2 of 2 08:08 AM [id number]
[2018-08-03] MEDS ORDERED: ATROPINE SULFATE 1 MG/10 ML SYR IVP PRN (15:00)
--- NOTE | 2018-08-03 15:32 | ASMTCMCOM ---
CM Note CM Note Notes: 08/03/2018 Case Mangaement Note Pt admitted for CHF exacerbation. Discussed pt during rounds this morning. Cath and ECHO planned. There are no therapy evals ordered at this time. There are no case management d/c needs identified d/t pt age, family support, employment status and independence with ADL's prior to admission. Case Management d/c poc: Independent with follow up as directed. Case Management available if needs change. Date Signed: 08/03/2018 03:32 PM Electronically Signed By:Tara Alegria RN
--- NOTE | 2018-08-03 16:30 | PDDCSUM ---
Discharge Summary Discharge Summary: Date of Admission: 08/02/2018 Date of Discharge: 08/03/2018 Consults: Cardiology Procedures: CTA PE, LE U/S, CXR, LHC Followup: PCP Hospital Course Problem List: #New LBBB #SOB #Pedal Edema #HTN #Leg cramping #Confusion, resolved #Thyroid Nodularity #R Axillary CARYL Unclear what the etiology of the new LBBB is. Troponins negative x3 overnight. Cards consulted who performed LHC which did not show any significant CAD. TTE performed which showed EF 63%, paradoxic septal motion suggestive of BBB, Normal RV function, mild MR, mild FIDE present, normal Aortic Valve. The SOB since surgery and leg swelling is concerning. CTA chest performed on admission which was negative for PE, however did show thyroid nodularity and R axillary CARYL. TFTs ordered as IP which were WNL. Patient to followup for Thyroid U/S as well as Mammography as outpatient to f/u abnormal CT results. Time spent on discharge was >35 minutes with >50% of time spent on patient education and counseling.
--- NOTE | 2018-08-03 16:51 | ASDISCHSUM ---
Discharge Information Plan Status:Home with No Needs Medically Cleared to Leave:08/02/2018 Discharge Date:08/02/2018 CM D/C Disposition:Home, Routine, Self-Care ADT D/C Disposition: Projected Discharge Date:08/02/2018 Transportation at D/C: Discharge Delay Reason: Follow-Up Date:08/02/2018 Discharge Slot: Final Diagnosis: Placement Information Patient Contact Information Contact Name:TY Relationship: Address:[address] City:[place] [facility] Phone: State/Zip Code:[place] [address] Email: Financial Information Financial Class:[employer] Primary Plan Desc:[facility] Primary Plan Number:[id number] Secondary Plan Desc: Secondary Plan Number: Assessment Information LACE LACE Length of stay for Answers: 1 day current admission Acuity / Level of Answers: No Care: Did the patient have an inpatient admission? Comorbidities - select Answers: Opioid dependence all that apply / Chronic pain Other Notes: HTN # of Emergency department Answers: 1-2 visits in the last 6 months Score: 7 Date Signed: 08/03/2018 04:50 PM Electronically Signed By:Tara Alegria RN [facility] CM Progress Note CM Note CM Note Notes: 08/03/2018 Case Mangaement Note Pt admitted for CHF exacerbation. Discussed pt during rounds this morning. Cath and ECHO planned. There are no therapy evals ordered at this time. There are no case management d/c needs identified d/t pt age, family support, employment status and independence with ADL's prior to admission. Case Management d/c poc: Independent with follow up as directed. Case Management available if needs change. Date Signed: 08/03/2018 03:32 PM Electronically Signed By:Tara Alegria RN Intervention Information
[2018-08-03 18:22] VITALS: BP 123/73
[2018-08-04] MEDS ORDERED: FUROSEMIDE 40 MG TAB PO SCH (09:00)
== END 2018-08-03 18:24 | disposition home or self-care (01) ==
LOC: CED 11:48 → CEDHOLD 13:20 → F2W 15:45
PROVIDERS: ADMIT Family Medicine; ATTEND Internal Medicine
DX: I44.7 Left bundle-branch block, unspecified (principal); R06.02 Shortness of breath; R60.9 Edema, unspecified; R41.0 Disorientation, unspecified; I10 Essential (primary) hypertension; E04.1 Nontoxic single thyroid nodule; R59.0 Localized enlarged lymph nodes; R25.2 Cramp and spasm; J45.909 Unspecified asthma, uncomplicated; Z87.891 Personal history of nicotine dependence; Z90.710 Acquired absence of both cervix and uterus; Z88.2 Allergy status to sulfonamides
CPT/HCPCS: 71046; 71275; 93005; 93306; 93458; 93970; 96374; 96375; 99285; G0378; 80048-ER; 84484-ER; C1760; J1644; J1940; J2250; J2270; J3010; Q9967

== ENCOUNTER 2018-08-08 11:32 | Emergency (ER) | payer OTHER ==
--- NOTE | 2018-08-08 11:52 | EDPHY ---
HPI/HX/ROS/PE/MDM Narrative: CHIEF COMPLAINT: Chest pressure HPI: The patient is a 63-year-old female with a history of congestive heart failure. Approximately 1 week ago she underwent cardiac catheterization secondary to being found to have a left bundle branch block on EKG. She reports to me that that procedure was done by Dr. Adis Aaron from Cardiology and the findings were negative. Since the procedure, she notes intermittent chest pressure. She states this tends to come on after eating and is relieved sometimes with belching. She states this has gotten worse and is present all morning. She has taken intermittent antacids which seemed to help somewhat. She has not seen Cardiology since her catheterization. REVIEW OF SYSTEMS: Aside from elements discussed in the HPI, a comprehensive 10-point review of systems was reviewed and is negative. PMH: Includes CHF, history of abdominal cellulitis. Recent catheterization. SOCIAL HISTORY: Former admissions clear care in hospital. Denies drug abuse. PHYSICAL EXAM: General:Patient is alert, in no acute distress. Obese. ENT:Eyes are normal to inspection. ENT inspection normal. Neck: Normal inspection. Full range of motion. Respiratory:No respiratory distress. Breath sounds normal bilaterally. Cardiovascular: Regular rate and rhythm. Strong peripheral pulses. Normal cap refill. Abdomen:The abdomen is nontender to palpation. There are no peritoneal signs. There are normal bowel sounds. Back: Normal to inspection. No tenderness to palpation. Skin: Normal color. No rash. Warm and dry. Extremities: Normal appearance. Full range of motion. Neuro: Oriented x3. Normal motor function. Normal sensory function. ED Course: 63 y/o female with recent negative cardiac catheterization presents with chest discomfort ongoing for one week, often associated with eating. Plan for EKG, chest x-ray. Plan to administer GI cocktail for symptom relief. Plan for labs including CBC, chemistries, liver, lipase, POC troponin. EKG was ordered and interpreted by myself. Please see [facility] system for official reading. LBBB, known to patient. POC troponin negative. Chest x-ray is negative for acute processes. Reviewed laboratory studies. These are largely unremarkable. Reassessed patient. I offered admission for further evaluation. Patient is feeling much better following GI cocktail and feels her symptoms are likely due to heartburn. She declines admission at this time. Given negative cardiac workup today and recent reported negative cardiac catheterization, outpatient followup is acceptable for this patient. She is aware she may return to the ED or seek admission for further evaluation at any time. Plan to discharge home in good condition. She will take Zantac for symptom relief. Follow up and return precautions discussed. She is comfortable with this plan. - Data Points Imaging Results: Imaging Impressions Chest X-Ray 08/08/18 11:47 Impression: 1. Stable mild cardiomegaly. 2. Bibasilar subsegmental bands of atelectasis. Laboratory Results: Laboratory Results 08/08/18 12:07 08/08/18 12:07 08/08/18 08/08/18 08/08/18 12:07 12:07 12:07 WBC 7.85 10^3/uL 10^3/uL (3.80-9.50) RBC 5.33 10^6/uL 10^6/uL (4.18-5.33) Hgb 14.2 g/dL g/dL (12.6-16.3) Hct 44.9 % % (38.0-47.0) MCV 84.2 fL fL (81.5-99.8) MCH 26.6 pg L pg (27.9-34.1) MCHC 31.6 g/dL L g/dL (32.4-36.7) RDW 15.2 % % (11.5-15.2) Plt Count 229 10^3/uL 10^3/uL (150-400) MPV 10.6 fL fL (8.7-11.7) Neut % (Auto) 71.0 % % (39.3-74.2) Lymph % (Auto) 21.9 % % (15.0-45.0) [place] % (Auto) 5.0 % % (4.5-13.0) Eos % (Auto) 1.3 % % (0.6-7.6) Baso % (Auto) 0.5 % % (0.3-1.7) Nucleat RBC Rel Count 0.0 % % (0.0-0.2) Absolute Neuts (auto) 5.58 10^3/uL 10^3/uL (1.70-6.50) Absolute Lymphs (auto) 1.72 10^3/uL 10^3/uL (1.00-3.00) Absolute Monos (auto) 0.39 10^3/uL 10^3/uL (0.30-0.80) Absolute Eos (auto) 0.10 10^3/uL 10^3/uL (0.03-0.40) Absolute Basos (auto) 0.04 10^3/uL 10^3/uL (0.02-0.10) Absolute Nucleated RBC 0.00 10^3/uL 10^3/uL (0-0.01) Immature Gran % 0.3 % % (0.0-1.1) Immature Gran # 0.02 10^3/uL 10^3/uL (0.00-0.10) Sodium 140 mEq/L mEq/L (135-145) Potassium 3.8 mEq/L mEq/L (3.5-5.2) Chloride 106 mEq/L mEq/L (97-110) Carbon Dioxide 26 mEq/l mEq/l (22-31) Anion Gap 8 mEq/L mEq/L (6-14) BUN 15 mg/dL mg/dL (7-23) Creatinine 0.8 mg/dL mg/dL (0.6-1.0) Estimated GFR > 60 Glucose 94 mg/dL mg/dL (70-100) Calcium 9.5 mg/dL mg/dL (8.5-10.4) Total Bilirubin 0.5 mg/dL mg/dL (0.1-1.4) Conjugated Bilirubin 0.2 mg/dL mg/dL (0.0-0.5) Unconjugated Bilirubin 0.3 mg/dL mg/dL (0.0-1.1) AST 21 IU/L IU/L (14-46) ALT 30 IU/L IU/L (9-52) Alkaline Phosphatase 124 IU/L IU/L (38-126) POC Troponin I Total Protein 7.1 g/dL g/dL (6.3-8.2) Albumin 4.4 g/dL g/dL (3.5-5.0) Lipase 140 IU/L IU/L (23-300) 08/08/18 12:04 WBC RBC Hgb Hct MCV MCH MCHC RDW Plt Count MPV Neut % (Auto) Lymph % (Auto) [place] % (Auto) Eos % (Auto) Baso % (Auto) Nucleat RBC Rel Count Absolute Neuts (auto) Absolute Lymphs (auto) Absolute Monos (auto) Absolute Eos (auto) Absolute Basos (auto) Absolute Nucleated RBC Immature Gran % Immature Gran # Sodium Potassium Chloride Carbon Dioxide Anion Gap BUN Creatinine Estimated GFR Glucose Calcium Total Bilirubin Conjugated Bilirubin Unconjugated Bilirubin AST ALT Alkaline Phosphatase POC Troponin I 0.00 ng/mL ng/mL (0.00-0.08) Total Protein Albumin Lipase Medications Given: Discontinued Medications Al Hydroxide/Mg Hydroxide (Maalox Susp) 30 ml PO ONCE ONE Stop: 08/08/18 12:48 Last Admin: 08/08/18 13:02 Dose: 30 ml Hyoscyamine Sulfate (Levsin, Hyomax-Sl) 0.25 mg PO ONCE ONE Stop: 08/08/18 12:48 Last Admin: 08/08/18 13:01 Dose: 0.25 mg Famotidine/Sodium Chloride (Pepcid 20 Mg (Premix)) 50 mls @ 200 mls/hr IV EDNOW ONE Stop: 08/08/18 13:01 Last Admin: 08/08/18 13:02 Dose: 50 mls Lidocaine (Lidocaine 2% Viscous) 15 ml PO ONCE ONE Stop: 08/08/18 12:48 Last Admin: 08/08/18 13:01 Dose: 15 ml Point of Care Test Results: Chemistry 08/08/18 12:04 POC Troponin I 0.00 ng/mL ng/mL (0.00-0.08) General Initial Vital Signs: Initial Vital Signs Temperature (C) 36.4 C 08/08/18 11:35 Heart Rate 83 08/08/18 11:35 Respiratory Rate 18 08/08/18 11:35 O2 Sat (%) 96 08/08/18 11:35 O2 Delivery Mode Room Air Allergies/Adverse Reactions: sulfamethoxazole [From Bactrim] Allergy (Verified 08/08/18 11:34) Rash trimethoprim [From Bactrim] Allergy (Verified 08/08/18 11:34) Rash Home Medications: Medication Instructions Recorded Fluticasone Nasal [Flonase Nasal 2 sprays EACHNARE DAILY PRN 06/05/17 [place]] Loratadine 10 mg PO DAILY PRN 03/05/18 Losartan Potassium [Cozaar 25 mg 25 mg PO HS 03/05/18 (*)] ARIPiprazole [Abilify 2 mg (*)] 2 mg PO HS 08/02/18 Furosemide [Lasix 40 MG (*)] 40 mg PO Q2D 08/02/18 Ibuprofen [Motrin (*)] 600 mg PO DAILY PRN 08/02/18 Multivitamins [Multivitamin (*)] 1 each PO DAILY 08/02/18 lamoTRIgine [LamICTAL 100 MG (*)] 200 mg PO HS 08/02/18 Departure - Departure Disposition: Home, Routine, Self-Care Clinical Impression: Chest discomfort GERD (gastroesophageal reflux disease) Qualifiers: Esophagitis presence: esophagitis presence not specified Qualified Code(s): K21.9 - Gastro-esophageal reflux disease without esophagitis Condition: Good Instructions: Chest Pain (ED), Gastroesophageal Reflux Disease (ED) Additional Instructions: Take Zantac, available over the counter, as directed on the packaging. Follow up with your primary care provider in the next 2-3 days. Return to the emergency department for worsening or changing chest pain, shortness of breath, fever, or other worsening of condition. Referrals: Alonso Freedman MD [Primary Care Provider] - As per Instructions Report Scribed for: Nikolai Kathleen Report Scribed by: Nora Gomez Date of Report: 08/08/18 Time of Report: 13:56
[2018-08-08 12:22] LABS: PLATELET COUNT 229 10^3/uL (150-400)
[2018-08-08] MEDS ORDERED: FAMOTIDINE 20 MG/NACL 50 ML IV ONE (12:47)
[2018-08-08] MEDS ORDERED: LIDOCAINE 2% VISCOUS 15 ML UDCUP PO ONE (12:47)
[2018-08-08] MEDS ORDERED: HYOSCYAMINE SULFATE 0.125 MG TAB PO ONE (12:47)
[2018-08-08] MEDS ORDERED: MAG HYDROX/AL HYDROX/SIMETH 30 ML UDCUP PO ONE (12:47)
--- NOTE | 2018-08-08 13:55 | CPEKG ---
Test Reason : OPEN Blood Pressure : / mmHG Vent. Rate : 081 BPM Atrial Rate : 082 BPM P-R Int : 204 ms QRS Dur : 154 ms QT Int : 427 ms P-R-T Axes : 068 -33 111 degrees QTc Int : 496 ms Sinus rhythm Probable left atrial enlargement Left bundle branch block Confirmed by Nikolai Kathleen ([id number] on 08/08/2018 1:55:13 PM Referred By: Nikolai Kathleen Confirmed By:Nikolai Kathleen
[2018-08-08 14:03] VITALS: BP 137/70
== END 2018-08-08 14:03 | disposition home or self-care (01) ==
DX: R07.89 Other chest pain (principal); K21.9 Gastro-esophageal reflux disease without esophagitis; I44.7 Left bundle-branch block, unspecified; Z86.79 Personal history of other diseases of the circulatory system
CPT/HCPCS: 84484-ER; 96365

== ENCOUNTER → 2018-08-29 | Outpatient (CLI) | payer OTHER | LOC: FIMAGING 16:43 | PROVIDERS: ATTEND Family Medicine | DX: E04.1 Nontoxic single thyroid nodule (principal) ==

== ENCOUNTER → 2018-09-24 | Outpatient (CLI) | payer OTHER | LOC: FIMAGING 16:03 | PROVIDERS: ATTEND Family Medicine | DX: Z12.31 Encounter for screening mammogram for malignant neoplasm of breast (principal); Z80.3 Family history of malignant neoplasm of breast ==

== ENCOUNTER → 2018-09-26 | Outpatient (CLI) | payer OTHER ==
[~2018-09-26] MED LIST changes: +LIDOCAINE 1% 300 MG/30 ML SDV ONE; -MIDAZOLAM 2 MG/2 ML VIAL ONE
== END ==
LOC: FIMAGING 08:20
PROVIDERS: ATTEND Family Medicine
PROC: 0G9K3ZX Drainage of Thyroid Gland, Percutaneous Approach, Diagnostic (ICD-10-PCS; principal; 2018-09-26)
DX: E04.1 Nontoxic single thyroid nodule (principal)